=== PATIENT | female | born 1940 | race Caucasian/White ===

== ENCOUNTER → 2017-06-10 | Outpatient (CLI) | payer OTHER ==
--- NOTE | 2017-06-11 17:44 | MRI ---
EXAM DESCRIPTION: Cervical Spine CLINICAL HISTORY: DISC DEGENERATION COMPARISON: 08/03/2011 TECHNIQUE: Multiplanar images of the cervical spine were submitted without the administration of contrast FINDINGS: There is straightening of the normal lordosis. There is mild anterolisthesis of C3 on C4. Mild anterolisthesis of C7 on T1. These changes appear similar to the previous study. Marrow signal is mildly heterogeneous with some reactive endplate changes. No evidence of geographic marrow lesion or marrow edema. No acute fracture. Signal within the cervical cord appears within normal limits. C2-3: Unremarkable. C3-4: Mild disc bulging and facet arthropathy with mild narrowing of the left neural foramen and central canal. C4-5: Generalized and right-sided bulging of the disc with mild flattening of the anterior aspect of the thecal sac and right neural foraminal narrowing. C5-6: Generalized bulging of the disc with moderate narrowing of the central canal and neural foramina. C6-7: Generalized disc bulging with mild central canal stenosis. C7-T1: Mild disc bulging without significant central canal or neural foraminal narrowing. IMPRESSION: Multilevel degenerative change as described above. Changes appear similar to the patient's prior examination Electronically signed by: Kitty Marcelino 06/11/2017 5:42 PM CDT
--- NOTE | 2017-06-11 17:53 | MRI ---
EXAM DESCRIPTION: Brain w/wo Contrast CLINICAL HISTORY: PARESTHESIA OF SKIN COMPARISON: None TECHNIQUE: Multiplanar images of the brain were obtained with and without the administration of intravenous contrast FINDINGS: Ventricles and sulci are mildly prominent consistent with age-appropriate atrophy. No midline shift or mass effect. There is mild periventricular white matter disease and areas of abnormal T2 signal bilaterally, most notable in the subcortical and deep white matter of the left frontal lobe, consistent with microvascular ischemic changes. No evidence of extra-axial fluid collection. Distal carotid arteries have symmetric flow voids. Dominant left vertebral artery. No evidence of abnormal enhancement and no evidence of intraparenchymal mass. The venous sinuses appear to enhance normally. No areas of restricted diffusion to suggest acute infarct. IMPRESSION: No evidence of acute process Age-appropriate atrophy with mild periventricular white matter disease and microvascular ischemic changes Electronically signed by: Kitty Marcelino 06/11/2017 5:52 PM CDT
== END | disposition home or self-care (01) ==
LOC: MRI 12:43
PROVIDERS: ATTEND Family Medicine
DX: R20.2 Paresthesia of skin (principal); M50.30 Other cervical disc degeneration, unspecified cervical region

== ENCOUNTER 2017-07-16 15:56 | Emergency (ER) | payer OTHER ==
[2017-07-16 16:18] VITALS: TEMP 98.2; O2SAT 98
--- NOTE | 2017-07-16 16:25 | ED.PDOC ---
History of Present Illness - General Chief Complaint: Head Injury Stated Complaint: Dizziness, fell in bathtub and hit head Time Seen by Provider: 07/16/17 16:07 Source: patient, RN notes reviewed, Vital Signs reviewed, family - Daughter Exam Limitations: no limitations - History of Present Illness Initial Comments: Patient comes into the ER with c/o head, neck & back pain after falling into the bathtub. She was getting ready to go to the bathroom, leaned over and lost her balance. She fell ending up on her back in the bathtub and striking her head on the tub. No LOC. Denies any other injuries. Occurred: just prior to arrival - ~45 minutes prior to arrival Severity: moderate Head Injury Location: occipital Method of Injury: fell Loss of Consciousness: no loss of consciousness Associated Symptoms: headaches Allergies/Adverse Reactions: Allergies Cephalosporins Allergy (Verified 07/16/17 16:15) Ketorolac Tromethamine [From Toradol] Allergy (Verified 07/16/17 16:15) Metformin Allergy (Verified 07/16/17 16:15) Tramadol [From Ultram] Allergy (Verified 07/16/17 16:15) Home Medications: Ambulatory Orders Aspirin [Baby Aspirin] 81 mg PO QD 04/06/15 Bisoprolol Fumarate 5 mg PO DAILY 04/06/15 Cetirizine HCl [Zyrtec] 10 mg PO DAILY 04/06/15 Clonazepam 0.5 mg PO BEDTIME 04/06/15 Fenofibrate [Tricor] 145 mg PO BEDTIME 04/06/15 Fibercon 2 each PO BID 04/06/15 HYDROcodone 5MG/APAP 325MG [Premont 5/325] 1 tab PO PRN PRN 04/06/15 Insulin Glargine 100U/ml [Lantus] 44 unit SUBCU BEDTIME 04/06/15 Lisinopril 2.5 mg PO DAILY 04/06/15 Multiple Vitamins W/ Minerals [Centrum Silver] 1 tab PO DAILY 04/06/15 Pantoprazole Tablet [Protonix] 40 mg PO DAILY 04/06/15 Venlafaxine Xr [Effexor Xr] 150 mg PO DAILY 04/06/15 Review of Systems - Review of Systems Constitutional: States: no symptoms reported EENTM: States: no symptoms reported. Denies: blurred vision, double vision Respiratory: States: no symptoms reported Cardiology: States: no symptoms reported Gastrointestinal/Abdominal: States: no symptoms reported. Denies: nausea, vomiting Musculoskeletal: States: see HPI, back pain Skin: States: lumps - back of head Neurological: States: headache, numbness - bilateral legs, paresthesia - facial - chronic All other Systems: No Change from Baseline Past Medical History (General) - Patient Medical History Hx Stroke: No Hx Cardiac Disorders: Yes - arrhythmia Hx Hypertension: Yes Hx Diabetes: Yes Hx Gastroesophageal Reflux: Yes Hx Cancer: Yes - skin Hx Hepatitis C: No Hx MRSA: Yes - Stool 2009 MRSA Source:: Wound Surgical History: appendectomy, cholecystectomy, tonsillectomy, Hysterectomy, other - Vaccination History Hx Influenza Vaccination: No Hx Pneumococcal Vaccination: No - Social History Hx Tobacco Use: No Hx Alcohol Use: Yes - Female History Patient is a Female of Child Bearing Age (10 -59 yrs old): No Patient : No Family Medical History - Family History Mother Family History: Unknown Living Status: Cause of : lung CA Physical Exam - Physical Exam General Appearance: Alert, No apparent distress, Well Developed, Well Groomed, Well Hydrated, Well Nourished Head Injury: contusions - back of head, swelling, tenderness Eye Exam: bilateral normal ENT Exam: hearing grossly normal, no evidence of ENT injury, no dental injury Neck Exam: normal alignment, tenderness, tender lateral, tender midline Cardiovascular/Respiratory: regular rate, rhythm, normal breath sounds, no respiratory distress, murmur - systolic Back Exam: vertebral tenderness - upper thoracic and lumbar, Tender paraspinous muscles thoracic and lumbar Extremity: normal range of motion, non-tender, normal inspection Mental Status: alert, oriented x 3 assistant chief engineer Exam: normal hearing, normal speech, PERRL Coordination/Gait: normal gait Motor/Sensory: no motor deficit, no sensory deficit Skin Exam: normal color, warm/dry Comments: Vital Signs 07/16/17 16:09 Temperature 98.2 F Pulse Rate [ 74 Left Radial] Respiratory 20 Rate Blood Pressure 151/49 [Left Arm] O2 Sat by Pulse 98 Oximetry - [place] Coma Score Best Eye Response (Pb): (4) open spontaneously Best Verbal Response ([place]): (5) oriented Best Motor Response ([place]): (6) obeys commands Pb Total: 15 Progress - Progress Progress: 07/16/17 17:23 Discussed normal imaging results with patient and daughter. - EKG/XRAY/CT Xray Comments: T & L-Spine: no acute fx/injury per Radiologist CT: C-spine: no fracture or acute changes per Radiologist CT Ordered: Yes - Head: no acute intracranial abnormality per Rad. Departure - Departure Clinical Impression: Contusion of other part of head, initial encounter, Strain of muscle and tendon of back wall of thorax, initial encounter Cervical strain, acute Qualifiers: Encounter type: initial encounter Qualified Code(s): S16.1XXA - Strain of muscle, fascia and tendon at neck level, initial encounter Time of Disposition: 17:25 Disposition: Discharge to Home or Self Care Condition: Good Departure Forms: ED Discharge - Pt. Copy, Patient Portal Self Enrollment Instructions: DI for Closed Head Injury, DI for Back Strain or Sprain, DI for Whiplash Diet: resume usual diet Activity: increase activity as tolerated Referrals: Mukul Farr MD [Primary Care Provider] - 1-2 Weeks Home Medications: Ambulatory Orders Aspirin [Baby Aspirin] 81 mg PO QD 04/06/15 Bisoprolol Fumarate 5 mg PO DAILY 04/06/15 Cetirizine HCl [Zyrtec] 10 mg PO DAILY 04/06/15 Clonazepam 0.5 mg PO BEDTIME 04/06/15 Fenofibrate [Tricor] 145 mg PO BEDTIME 04/06/15 Fibercon 2 each PO BID 04/06/15 HYDROcodone 5MG/APAP 325MG [Premont 5/325] 1 tab PO PRN PRN 04/06/15 Insulin Glargine 100U/ml [Lantus] 44 unit SUBCU BEDTIME 04/06/15 Lisinopril 2.5 mg PO DAILY 04/06/15 Multiple Vitamins W/ Minerals [Centrum Silver] 1 tab PO DAILY 04/06/15 Pantoprazole Tablet [Protonix] 40 mg PO DAILY 04/06/15 Venlafaxine Xr [Effexor Xr] 150 mg PO DAILY 04/06/15
--- NOTE | 2017-07-16 17:08 | RAD ---
EXAM: Lumbar Spine 3 Views (accession [id number]), Thoracic Spine,AP Lateral (accession [id number]) CLINICAL INDICATION: 76-year-old female with pain status post falling into bathtub. TECHNIQUE: Two views of the thoracic spine were obtained in AP, and lateral projection. Three views of the lumbar spine were obtained in AP, lateral and spot projections. COMPARISON: None. FINDINGS: Thoracic spine: Alignment of the thoracic spine is within normal limits. There is no subluxation or fracture deformity. Morphology of the vertebral bodies and intervertebral disc spaces is compatible with mild degenerative change. Lumbar spine: Alignment of the lumbar spine is within normal limits. There is no subluxation or fracture deformity. Morphology of the vertebral bodies and intervertebral disc spaces is compatible with mild degenerative change. Orthopedic screws traverse the L4 and L5 levels with posterior laminectomy. The remainder of the visualized bones are within normal limits. IMPRESSION: No acute radiographic abnormality. Electronically signed by: Linnea Palomo MD 07/16/2017 5:06 PM CDT Workstation: [id number]
--- NOTE | 2017-07-16 17:08 | RAD ---
EXAM: Lumbar Spine 3 Views (accession [id number]), Thoracic Spine,AP Lateral (accession [id number]) CLINICAL INDICATION: 76-year-old female with pain status post falling into bathtub. TECHNIQUE: Two views of the thoracic spine were obtained in AP, and lateral projection. Three views of the lumbar spine were obtained in AP, lateral and spot projections. COMPARISON: None. FINDINGS: Thoracic spine: Alignment of the thoracic spine is within normal limits. There is no subluxation or fracture deformity. Morphology of the vertebral bodies and intervertebral disc spaces is compatible with mild degenerative change. Lumbar spine: Alignment of the lumbar spine is within normal limits. There is no subluxation or fracture deformity. Morphology of the vertebral bodies and intervertebral disc spaces is compatible with mild degenerative change. Orthopedic screws traverse the L4 and L5 levels with posterior laminectomy. The remainder of the visualized bones are within normal limits. IMPRESSION: No acute radiographic abnormality. Electronically signed by: Linnea Palomo MD 07/16/2017 5:06 PM CDT Workstation: [id number]
--- NOTE | 2017-07-16 17:12 | CT ---
EXAM: Head CLINICAL INDICATION: 76-year-old female status post fall backwards into bathtub, hitting head. COMPARISON: None. TECHNIQUE: CT brain without contrast. This exam was performed according to our departmental dose optimization program which includes use of automated exposure control, adjustment of the mA and/or kV according to patient size and/or use of iterative reconstruction technique. FINDINGS: Minimal foci of patchy hypoattenuation are present in a subcortical and periventricular deep white matter distribution, nonspecific; however, most likely represent small vessel ischemic disease, age indeterminate. The ventricles, sulci, and cisterns are symmetric and unremarkable. The west-white matter differentiation is preserved. There is no mass effect, midline shift, intra- or extra-axial fluid collection/acute hemorrhage. The osseous structures are unremarkable. The paranasal sinuses and mastoid air cells are clear. IMPRESSION: 1. No acute intracranial abnormalities. Nonspecific, minimal white matter change most likely small vessel ischemic disease, age indeterminate. 2. CT is insensitive for early evaluation of acute stroke. If there is clinical concern for acute ischemia, an MRI may be considered. Electronically signed by: Linnea Palomo MD 07/16/2017 5:10 PM CDT Workstation: [id number]
--- NOTE | 2017-07-16 17:17 | CT ---
EXAM: Cervical Spine CLINICAL INDICATION: 36-year-old female status post fall backwards onto bathtub hitting head. TECHNIQUE: Cervical spine CT was performed without contrast. Multiplanar reformatted images were provided. This exam was performed according to our departmental dose optimization program which includes use of automated exposure control, adjustment of the mA and/or kV according to patient size and/or use of iterative reconstruction technique. COMPARISON: None. FINDINGS: Trace anterolisthesis present of C3 relative to C4 suspected secondary to severe facet degenerative change at that level. There is otherwise normal alignment of the cervical spine without fracture or subluxation. The facets are normal in alignment bilaterally. The posterior elements including the spinous processes are intact. Straightening of the cervical spine which may be secondary to positioning for the examination. Morphology and attenuation of the vertebral bodies and intervertebral disc spaces is compatible with moderate multilevel degenerative change with moderate to severe RIGHT facet hypertrophy and mild LEFT facet hypertrophy. Loss of disk height present throughout the visualized cervical spine. Posterior osseous spurring results in central spinal canal and neural foraminal narrowing at the C4-5, C5-6 and C6-7 vertebral level. The pre-and paravertebral soft tissues are within normal limits. The airway is patent. Extraspinal imaging is within normal limits. IMPRESSION: 1. Straightening of the cervical spine which may be secondary to positioning for the examination versus spasm. 2. No fracture or acute subluxation. 3. Multilevel degenerative changes as detailed above. If the patient's symptoms persist, follow-up imaging may be considered with MRI. Electronically signed by: Linnea Palomo MD 07/16/2017 5:15 PM CDT Workstation: [id number]
[2017-07-16 17:56] VITALS: BP 112/59
== END 2017-07-16 18:00 | disposition home or self-care (01) ==
LOC: ER 15:56
DX: S16.1XXA Strain of muscle, fascia and tendon at neck level, initial encounter (principal); S00.93XA Contusion of unspecified part of head, initial encounter; S29.012A Strain of muscle and tendon of back wall of thorax, initial encounter; E11.9 Type 2 diabetes mellitus without complications; I10 Essential (primary) hypertension; K21.9 Gastro-esophageal reflux disease without esophagitis; Z85.828 Personal history of other malignant neoplasm of skin; Z88.8 Allergy status to other drugs, medicaments and biological substances; Z79.4 Long term (current) use of insulin; Z79.82 Long term (current) use of aspirin; W18.2XXA Fall in (into) shower or empty bathtub, initial encounter; Y92.002 Bathroom of unspecified non-institutional (private) residence as the place of occurrence of the external cause

== ENCOUNTER → 2017-09-14 | Outpatient (CLI) | payer OTHER | END | disposition home or self-care (01) | LOC: GMAM 16:56 | PROVIDERS: ATTEND Family Medicine | DX: E83.52 Hypercalcemia (principal); L65.8 Other specified nonscarring hair loss ==

== ENCOUNTER → 2018-03-07 | Outpatient (CLI) | payer OTHER | LOC: GMAM 12:23 | PROVIDERS: ATTEND Family Medicine | DX: L02.212 Cutaneous abscess of back [any part, except buttock and flank] (principal) ==

== ENCOUNTER → 2018-05-17 | Outpatient (CLI) | payer OTHER ==
--- NOTE | 2018-05-17 17:12 | RAD ---
EXAM DESCRIPTION: Knee,Left Complete CLINICAL HISTORY: 77 years, Female, PAIN IN LEFT KNEE COMPARISON: None TECHNIQUE: Four views of the left knee including standing views FINDINGS: No fracture or dislocation. Bones appear mildly osteopenic. Narrowed appearance of lateral compartment on frontal view with prominent lateral joint line spurring and tibial spine spurring. Lateral view shows normal position of the patella. Marked posterior patellar spurring is seen with severe narrowing of the patellofemoral joint. Suprapatellar joint effusion is present. Normal contour of quadriceps tendon but patellar tendon is obscured by edema superficial and deep. No abnormal patellar tilt or subluxation on patellar sunrise view. Prominent spurring laterally. IMPRESSION: Degenerative changes as described. Electronically signed by: Bertin Christensen MD 05/17/2018 5:11 PM CDT
--- NOTE | 2018-05-17 17:14 | RAD ---
EXAM DESCRIPTION: Knee,Right Complete CLINICAL HISTORY: 77 years, Female, PAIN IN RIGHT KNEE COMPARISON: None TECHNIQUE: Four views of the right knee including standing views FINDINGS: No fracture or dislocation. Bones appear mildly osteopenic. Narrowed appearance of lateral compartment on frontal view with prominent lateral joint line spurring and spurring of the tibial spines. Calcific density near the medial femoral condyle could be old injury or dystrophic calcification (hydroxyapatite crystal deposition). Lateral view shows normal position of the patella. Small posterior patellar spurs are present. Small suprapatellar knee joint effusion is suspected. Normal contour of quadriceps and patellar tendons. Prominent spurring of the posterior tibial surface. No abnormal patellar tilt or subluxation on patellar sunrise view. Prominent medial and lateral patellofemoral spurring. IMPRESSION: Degenerative changes as described. Electronically signed by: Bertin Christensen MD 05/17/2018 5:13 PM CDT
--- NOTE | 2018-05-17 17:15 | RAD ---
EXAM DESCRIPTION: Pelvis CLINICAL HISTORY: 77 years Female, PAIN IN LEFT HIP COMPARISON: None. FINDINGS: Frontal view of the pelvis shows no evidence of hip dislocation or femoral fracture. The bones of the pelvic ring appear intact. Myositis ossificans is seen in the soft tissues lateral to the iliac wings. Degenerative narrowing of the left SI joint with sclerosis. Orthopedic hardware is seen in the lower L-spine. Punctate densities in the right pelvis are present which may be calcifications or small metallic foreign bodies within bowel loops. IMPRESSION: Negative for fracture or dislocation. Electronically signed by: Bertin Christensen MD 05/17/2018 5:14 PM CDT
== END ==
LOC: RAD 08:13
PROVIDERS: ATTEND Orthopaedic Surgery
DX: M25.561 Pain in right knee (principal); M25.562 Pain in left knee; M25.551 Pain in right hip; M25.552 Pain in left hip

== ENCOUNTER → 2018-06-05 | Outpatient (CLI) | payer OTHER | LOC: RESP 10:45 | PROVIDERS: ATTEND Orthopaedic Surgery | DX: Z01.818 Encounter for other preprocedural examination (principal) ==

== ENCOUNTER 2018-06-30 05:29 | Inpatient (IN) | payer OTHER ==
[2018-06-30] MEDS ORDERED: GENTAMICIN SULFATE INJ 80 MG/2 ML VIAL ONE ×3 (06:24→19:44)
[2018-06-30] MEDS ORDERED: TRANEXAMIC ACID 1,000 MG/10 ML VIAL ONE ×2 (06:24→06:26)
[2018-06-30] MEDS ORDERED: LACTATED RINGERS 1,000 ML ONE (06:24)
[2018-06-30] MEDS ORDERED: VANCOMYCIN HCL INJ 1,000 MG VIAL IVPB ONE ×4 (06:25→19:41)
[2018-06-30] MEDS ORDERED: SODIUM CHLORIDE 0.9% 250ML 250 ML ONE ×3 (06:25→19:40)
[2018-06-30] MEDS ORDERED: SODIUM CHLORIDE 0.9% 100ML 200 ML IVPB ONE (06:25)
[2018-06-30] MEDS ORDERED: MIDAZOLAM INJ 2 MG/2 ML VIAL ONE (06:37)
[2018-06-30] MEDS ORDERED: fentaNYL CITRATE INJ 50 MCG/ML AMP ONE (06:37)
[2018-06-30] MEDS ORDERED: MORPHINE SULF *EPIDURAL* 1 MG/ML VIAL ONE (06:37)
[2018-06-30] MEDS ORDERED: BUPIVACAINE 0.25% W/EPI 50 ML VIAL INJ ONE (06:52)
[2018-06-30] MEDS ORDERED: ceFAZolin SODIUM 1 GM VIAL ONE ×2 (06:52→07:55)
[2018-06-30] MEDS ORDERED: METOCLOPRAMIDE HCL INJ 10 MG/2 ML VIAL ONE (07:00)
[2018-06-30] MEDS ORDERED: BUPIVACAINE LIPOSOME 13.3 MG/ML VIAL INJ ONE (07:00)
[2018-06-30] MEDS ORDERED: raNITIdine HCL INJ 25 MG/ML VIAL ONE (07:00)
[2018-06-30] MEDS ORDERED: ePHEDrine SULF 50 MG/ML ONE (07:00)
[2018-06-30] MEDS ORDERED: DEXAMETHASONE INJ 10 MG/ML VIAL ONE (07:00)
[2018-06-30] MEDS ORDERED: PROPOFOL 200 MG/20 ML VIAL IV ONE (07:00)
--- NOTE | 2018-06-30 08:05 | HP ---
CHIEF COMPLAINT: Left knee pain. HISTORY OF PRESENT ILLNESS: Ms. Sahu is a 77-year-old female with a history of pain in both knees. She has had pain that has limited her daily activities. Because of the activity limitations and failure of conservative measures, she has requested operative intervention. After discussing the risks, benefits and alternatives to that, the patient has given informed consent. PAST SURGICAL HISTORY: 1. Laminectomy. 2. Appendectomy. 3. Hysterectomy. MEDICATIONS: 1. Atorvastatin. 2. Bisoprolol. 3. Clonazepam. 4. Dorzolamide. 5. Fenofibrate. 6. Gabapentin. 7. Humalog. 8. Januvia. 9. Lantus. 10. Latanoprost. 11. Lisinopril. 12. Mupirocin. 13. Venlafaxine. 14. Zostavax. 15. Tylenol with codeine. 16. Nortriptyline ALLERGIES: CEPHALOSPORINS, TRAMADOL. CODE STATUS: Full code. IMMUNIZATIONS: Up to date. FAMILY HISTORY: None pertinent to today's complaint. SOCIAL HISTORY: The patient does not smoke or use any illicit drugs. She does drink on occasion. REVIEW OF SYSTEMS: Negative except as indicated in the History of Present Illness. PHYSICAL EXAMINATION: VITAL SIGNS: Blood pressure 96/54. Pulse 82. Height 5'1". Weight 153 pounds. MENTAL STATUS: The patient is awake, alert, and is able to give a good history and participate in the physical. The patient is oriented to person, place and time. SKIN: Normal tone and turgor. HEENT: Normocephalic, atraumatic. Pupils equal, round and reactive. Mucosal membranes are moist. NECK: Normal range of motion. No thyromegaly, no lymphadenopathy. CHEST: Normal respiratory excursion. CARDIAC: Regular rate and rhythm. No murmurs, rubs or gallops. MUSCULOSKELETAL: The bilateral upper extremities have full range of motion without pain. She has intact sensation in the extremities and they are warm and well perfused. The right lower extremity shows full range of motion of the hip. She has pain with range of motion of the knee and crepitus with range of motion. Sensation is intact. It is warm and well perfused. There is a valgus deformity. Strength is 5/5. The left lower extremity shows pain with range of motion of the knee, but essentially painless range of motion of the hip. She has crepitus with range of motion of the knee. She has valgus deformity. Sensation is intact. It is warm and well perfused. Strength seems to be 5/5. Range of motion is from approximately 5 to approximately 105 degrees. IMAGING: X-rays show advanced arthritis with valgus deformities. ASSESSMENT: 1. Bilateral knee arthritis. PLAN: Because the left side is worse, she would like to proceed with total knee arthroplasty. We have discussed the risks, benefits, and alternatives to that and the patient has given informed consent. #[id number] [facility]
[2018-06-30] MEDS: VANCOMYCIN HCL INJ 1,000 MG VIAL IVPB ONE ×2 (09:19→10:20)
[2018-06-30] MEDS ORDERED: ACETAMINOPHEN IV 1000MG 100 ML ONE (09:19)
[2018-06-30] MEDS ORDERED: BUPIVACAINE 0.5% 30 ML VIAL INJ ONE (10:03)
[2018-06-30] MEDS ORDERED: NALOXONE HCL INJ 0.4 MG/ML VIAL IV PRN (10:26)
[2018-06-30] MEDS ORDERED: MAGNESIUM HYDROXIDE 30 ML UD PO PRN (10:26)
[2018-06-30] MEDS ORDERED: PROMETHAZINE HCL INJ 12.5 MG in SODIUM CHLORIDE 0.9% 50ML 50 ML IVPB PRN (10:26)
[2018-06-30] MEDS ORDERED: MORPHINE SULFATE INJ 10 MG/ML VIAL IV PRN (10:26)
[2018-06-30] MEDS ORDERED: PROMETHAZINE HCL INJ 25 MG in SODIUM CHLORIDE 0.9% 50ML 50 ML IVPB PRN (10:26)
[2018-06-30] MEDS ORDERED: SODIUM CHLORIDE 0.9% (FLUSH) 10 ML SYG IV PRN (10:26)
[2018-06-30] MEDS ORDERED: BENZOCAINE-MENTH LOZ (CEPACOL) 1 EA LOZ MT PRN (10:26)
[2018-06-30] MEDS ORDERED: ACETAMINOPHEN 325 MG TAB PO PRN (10:26)
[2018-06-30] MEDS ORDERED: HYDROcodone 5MG/APAP 325MG 1 EA TAB PO PRN (10:26)
[2018-06-30] MEDS ORDERED: ZOLPIDEM TARTRATE 5 MG TAB PO PRN (10:26)
[2018-06-30] MEDS ORDERED: BISACODYL SUPPOSITORY 10 MG PR PRN (10:26)
[2018-06-30] MEDS ORDERED: TRANEXAMIC ACID INJ 1,000 MG in SODIUM CHLORIDE 0.9% 100ML 100 ML IVPB ONE (10:26)
[2018-06-30] MEDS ORDERED: ONDANSETRON INJ 4 MG/2 ML VIAL IV PRN (10:26)
[2018-06-30] MEDS ORDERED: MORPHINE SULFATE INJ 10 MG/ML VIAL IM PRN (10:26)
[2018-06-30] MEDS ORDERED: DEX 5% W/NACL 0.45% 1000ML 1,000 ML IVS PRN (10:26)
[2018-06-30] MEDS ORDERED: ACETAMINOPHEN 500 MG TAB PO PRN (10:26)
[2018-06-30] MEDS ORDERED: MORPHINE PCA 1 MG/ML 100 ML BAG IVPB SCH (10:30)
[2018-06-30] MEDS ORDERED: ELECTROLYTE-A 1,000 ML IVS ONE (10:37)
[2018-06-30] MEDS ORDERED: SUGAMMADEX SODIUM 200 MG/2 ML VIAL IV ONE (10:38)
[2018-06-30] MEDS ORDERED: ROCURONIUM BROMIDE 10 MG/ML VIAL ONE (11:53)
--- NOTE | 2018-06-30 13:23 | OP ---
DATE OF PROCEDURE: 06/30/18 PREOPERATIVE DIAGNOSIS: 1. Arthritis of the knee. POSTOPERATIVE DIAGNOSIS: 1. Arthritis of the knee. PROCEDURE: 1. Total knee arthroplasty. SURGEON: Carlos Sexton MD. [place]: Fernando Saldana CST, SA-C. ANESTHESIA: General anesthesia. COMPLICATIONS: None. FINDINGS: Severe arthritis with valgus deformity. INDICATION: Ms. Sahu has a history of severe knee pain that has been secondary to arthritis. She has an associated valgus deformity as well. She has failed conservative measures and because of her ongoing pain and failure of conservative measures, she has requested operative intervention. After discussing the risks, benefits and alternatives to that, the patient has given informed consent for total knee arthroplasty. PROCEDURE: The patient was brought to the Operating Room and placed in supine position. General anesthesia was induced and the patient's leg was sterilely prepped and draped. Following prepping and draping, the distal femur was exposed and using an intramedullary guide, the distal femoral cut was made. The appropriate sized cutting block was measured, pinned into place, and the anterior, posterior, and chamfer cuts were made. The ACL was transected and the tibia was subluxed. Both the medial and lateral menisci were removed. An intramedullary guide was used to make the proximal tibial cut. The appropriate sized base plate was placed and a trial polyethylene was placed. The trial femur was placed, the knee was reduced, and the knee was taken through a range of motion. The knee was stable in anterior, posterior, varus and valgus stress. The patella tracked anatomically without evidence of subluxation or dislocation. After trialing, the trial components were removed and the bony surfaces were thoroughly irrigated with saline. Following irrigation, the surfaces were dried and the final components were cemented into place. The excess cement was removed and the remaining cement was allowed to cure. The knee was again taken through a range of motion to confirm stability. The wound was then irrigated with saline and closure was performed using PDS to approximate the arthrotomy followed by closure of the subcutaneous tissues with a combination of running and interrupted Monocryl sutures. Sterile dressing was placed. The patient was awoken from anesthesia and taken to Recovery. POSTOPERATIVE INSTRUCTIONS: The patient will be weight-bearing as tolerated on postoperative day 1. COMPONENTS: [place] [employer] knee, size 2 femur, size 2 tibia, 9 mm insert. #[id number] [facility]
[2018-06-30] MEDS: GENTAMICIN SULFATE IVPB SCH ×2 (13:24→19:59)
[2018-06-30] MEDS: GENTAMICIN IVPB SCH ×2 (13:24→19:59)
[2018-06-30] MEDS: IV SET AND CAP CHANGE INJ INJ SCH (13:24)
--- NOTE | 2018-06-30 15:29 | RAD ---
EXAM DESCRIPTION: Knee,Left 2 or More Views CLINICAL HISTORY: 77 years Female, TKA TECHNIQUE: 2 views of the left knee were performed. COMPARISON: Radiographs of the left knee dated 05/17/2018. FINDINGS: The visualized bones appear well mineralized. No acute fracture or dislocation. No evidence of suprapatellar joint effusion. The soft tissues appear grossly unremarkable. Intact left total knee arthroplasty. IMPRESSION: Intact left total knee arthroplasty. Electronically signed by: Makeda Moreno MD 06/30/2018 3:28 PM CDT
[2018-06-30] MEDS ORDERED: DEXTROSE 50% 25 GM/50 ML SYG IV PRN (15:42)
[2018-06-30] MEDS ORDERED: GLUCAGON INJ 1 MG VIAL SUBCU PRN (15:42)
[2018-06-30] MEDS ORDERED: diphenhydrAMINE HCL 50 MG/ML VIAL IV PRN (15:44)
[2018-06-30] MEDS: INSULIN LISPRO 100 UNITS/ML PEN SUBCU SCH ×2 (16:24→20:57)
[2018-06-30] MEDS: CELECOXIB 100 MG CAP PO SCH (16:25)
[2018-06-30] MEDS: ASPIRIN (CHEWABLE) 81 MG TAB PO SCH (16:25)
[2018-06-30] MEDS: CETIRIZINE HCL 10 MG TAB PO SCH (16:26)
[2018-06-30] MEDS: VANCOMYCIN HCL INJ 1,000 MG in SODIUM CHLORIDE 0.9% 250ML 250 ML IVPB SCH (17:33)
[2018-06-30] MEDS ORDERED: GENTAMICIN PREMIX 80MG/100ML 100 ML IVPB ONE ×2 (19:39→19:44)
[2018-06-30] MEDS ORDERED: CALCIUM POLYCARBOPHIL 625 MG TAB ONE (19:40)
[2018-06-30] MEDS ORDERED: PANTOPRAZOLE SODIUM TAB 40 MG PO ONE (19:40)
[2018-06-30] MEDS ORDERED: ENOXAPARIN SODIUM 30 MG/0.3 ML SYG SUBCU ONE (19:41)
[2018-06-30] MEDS ORDERED: SODIUM CHLORIDE 0.45% 1000ML 1,000 ML IVS ONE (19:44)
[2018-06-30] MEDS: SODIUM CHLORIDE 0.45% 1000ML 1,000 ML IVS PRN (20:00)
[2018-06-30] MEDS: GABAPENTIN 100 MG CAP PO SCH (20:56)
[2018-06-30] MEDS: NORTRIPTYLINE HCL 25 MG CAP PO SCH (20:57)
[2018-06-30] MEDS: DOCUSATE CALCIUM 240 MG CAP PO SCH (20:57)
[2018-06-30] MEDS ORDERED: FIBERCON PO SCH (21:00)
[2018-06-30] MEDS ORDERED: OMEGA ACID ETHYL ESTERS PO SCH (21:00)
[2018-06-30] MEDS ORDERED: DORZOLAMIDE 2% OPHTH SCH (21:00)
[2018-06-30] MEDS ORDERED: NON-FORMULARY MEDICATION 1 EA MIS (Latanoprost 0.005% Ophth [Xalatan 0.005% Ophthalmic Dro BOTH_EYES SCH (21:00)
[2018-06-30] MEDS: ENOXAPARIN SODIUM 30 MG/0.3 ML SYG SUBCU SCH (23:05)
--- NOTE | 2018-07-01 00:23 | CONS ---
DATE OF CONSULTATION: 06/30/18 SUPERVISING PHYSICIAN: Humberto See M.D. REASON FOR CONSULTATION: Total left knee arthroplasty. HISTORY OF PRESENT ILLNESS: Ms. Sahu is a 77 year-old female patient that was admitted today for elective total left knee arthroplasty. She has a longstanding history of arthritis and pain in both knees. She has tried multiple attempts at conservative measures for relief of her pain, however has failed to receive any significant improvement. The pain has increased enough that it has limited her activities of daily living, therefore she requested operative intervention for a total left knee arthroplasty to be performed by Dr. Carlos Sexton. The patient was admitted for elective total knee arthroplasty today. She had no intraoperative complications and was seen in the immediate postoperative state in stable condition. PAST MEDICAL HISTORY: 1. Coronary artery disease. 2. Hypertension. 3. Peripheral vascular disease. 4. Gastroesophageal reflux disease. 5. History of Clostridium Difficile colitis in 2005. 6. Type 2 diabetes mellitus. 7. History of GI bleed after NSAIDs and steroids. PAST SURGICAL HISTORY: 1. Laminectomy. 2. Appendectomy. 3. Hysterectomy. 4. Bilateral cataract removal. 5. Tonsillectomy. HOME MEDICATIONS: 1. Glucosamine chondroitin 1 tablet daily. 2. Tylenol #3 one every 6 hours as needed for pain. 3. Januvia 100 mg daily. 4. Lovaza 2 capsules b.i.d. 5. Nortriptyline 50 mg at bedtime. 6. Mobic 7.5 mg daily. 7. Slow-Mag 128 mg daily. 8. Xalatan 1 drop both eyes at bedtime. 9. Humalog 100 units subcue as needed. 10. Neurontin 200 mg t.i.d. 11. Estrace 1 mg daily. 12. Trusopt 1 mL both eyes at bedtime. 13. Co Enzyme Q10 50 mg daily. 14. Cinnamon 1,000 mg daily. 15. Bisacodyl laxative 10 mg daily. 16. Clonazepam 0.5 mg at bedtime. 17. Bisoprolol Fumarate 5 mg daily. 18. Aspirin 81 mg daily. 19. TriCor 145 mg p.o. at bedtime. 20. FiberCon 2 tablets daily. 21. Lantus 46 units at bedtime. 22. Lisinopril 2.5 mg daily. 23. Multivitamin Centrum 1 tablet daily. 24. Effexor XR 150 mg daily. 25. Protonix 40 mg daily. ALLERGIES: CEPHALOSPORINS, KETOROLAC, METFORMIN AND TRAMADOL. FAMILY HISTORY: Significant for myocardial infarction. Father at age 84. Mother secondary to lung cancer. SOCIAL HISTORY: Ms. Sahu lives in [place]. She is and retired. She has never smoked. She does not drink alcohol. She does not use illicit drugs. REVIEW OF SYSTEMS: CONSTITUTIONAL: Denies any fevers, chills, body aches or unintentional weight loss. HEENT: No nasal congestion, headaches, sore throats, ear aches. RESPIRATORY: Denies any shortness of breath, cough, wheezing. CARDIOVASCULAR: Denies any chest pains, palpitations, syncopal episodes. GASTROINTESTINAL: Denies any nausea, vomiting, diarrhea or constipation or abdominal pains. GENITOURINARY: Denies any dysuria, hematuria, polyuria or other urinary symptoms. MUSCULOSKELETAL: As noted in history of present illness. NEUROLOGIC: Denies any syncopal episodes, ataxia, seizures or other neurological deficits. PHYSICAL EXAMINATION: VITAL SIGNS: Temperature 99.6, pulse 105, blood pressure 127/80, respirations 10 to 12, satting 99% on nasal cannula at 2 liters at rest. Admission weight 73.9 kg. GENERAL: The patient is seen in the immediate postoperative state. She is in no acute distress, resting comfortably with good pain control. Alert. HEENT: Tympanic membranes are clear bilaterally. Oropharynx is pink and moist without any lesions. NECK: Supple, non-tender with full range of motion. No jugular venous distention. CHEST: Lungs are clear to auscultation bilaterally without any rhonchi, wheezing or rales. HEART: Regular rate and rhythm without appreciable murmurs, gallops, or rubs. ABDOMEN: Soft, non-tender. Positive bowel sounds. EXTREMITIES: Left knee has a bulky surgical dressing in place with Iceman in place. Distally pulses are strong. Capillary refill is brisk. NEUROLOGIC: She was alert and oriented times three. LABORATORY: Postoperative H&H is pending. ASSESSMENT: 1. Immediate postoperative day zero for elective total left knee arthroplasty performed by Dr. Carlos Sexton. 2. Chronic knee pain failing to respond to conservative outpatient treatment measures requiring surgical intervention for symptom control. 3. Diabetes mellitus type 2, insulin dependent. 4. Hypertension. 5. History of gastroesophageal reflux disease. PLAN: The patient is admitted postoperative after elective total knee arthroplasty. Will follow as she progresses through her physical therapy and rehabilitation efforts with Physical Therapy under the direction of Dr. Carlos Sexton, orthopedic surgeon. Will resume her home medications as appropriate once updated and verified. She will be on DVT prophylaxis as per protocol with anticipation of Xarelto at discharge for a total of 12 days anticoagulation. She will be on insulin sliding scale per protocol. Tentative discharge planning includes arrangements [facility] [place]. Again, will defer further orthopedic management to Dr. Sexton and Physical Therapy. Until clinically stable enough to be discharged and met physical therapy goals, will continue to monitor and treat appropriately as needed. [facility][id number] [facility]
[2018-07-01] MEDS: GENTAMICIN IVPB SCH (03:50)
[2018-07-01] MEDS: GENTAMICIN SULFATE IVPB SCH (03:50)
[2018-07-01] MEDS: VANCOMYCIN HCL INJ 1,000 MG in SODIUM CHLORIDE 0.9% 250ML 250 ML IVPB SCH (06:21)
[2018-07-01] MEDS: PANTOPRAZOLE SODIUM TAB 40 MG PO SCH (06:21)
[2018-07-01] MEDS ORDERED: SITagliptin 50 MG TAB PO ONE (07:30)
[2018-07-01] MEDS ORDERED: CALCIUM POLYCARBOPHIL 625 MG TAB ONE (07:32)
[2018-07-01] MEDS: ACETAMINOPHEN W/COD #3 TAB 1 EA TAB PO PRN ×3 (07:51→17:23)
[2018-07-01] MEDS: CELECOXIB 100 MG CAP PO SCH ×3 (07:54→16:19)
[2018-07-01] MEDS: INSULIN LISPRO 100 UNITS/ML PEN SUBCU SCH ×4 (08:43→20:52)
[2018-07-01] MEDS ORDERED: NON-FORMULARY MEDICATION 1 EA MIS (Sitagliptin Phosphate [Januvia] 100 MG) PO SCH (09:00)
[2018-07-01] MEDS: VENLAFAXINE XR 75 MG CAP PO SCH (09:20)
[2018-07-01] MEDS: FISH OIL 1,200 MG CAP PO SCH ×2 (09:20→20:52)
[2018-07-01] MEDS: SITagliptin 50 MG TAB PO SCH (09:20)
[2018-07-01] MEDS: MAGNESIUM CHLORIDE 64 MG TAB PO SCH (09:20)
[2018-07-01] MEDS: FENOFIBRIC ACID 135 MG CAP PO SCH (09:21)
[2018-07-01] MEDS: CALCIUM POLYCARBOPHIL 625 MG TAB PO SCH ×2 (09:21→20:52)
[2018-07-01] MEDS: ESTRADIOL TAB 1 MG PO SCH (09:21)
[2018-07-01] MEDS: ASPIRIN (CHEWABLE) 81 MG TAB PO SCH (09:21)
[2018-07-01] MEDS: CETIRIZINE HCL 10 MG TAB PO SCH (09:21)
[2018-07-01] MEDS: GABAPENTIN 100 MG CAP PO SCH ×3 (09:21→20:52)
[2018-07-01] MEDS: LISINOPRIL 5 MG TAB PO SCH (09:22)
[2018-07-01] MEDS: BISACODYL TAB 5 MG TAB PO SCH (09:29)
[2018-07-01] MEDS: MAGNESIUM OXIDE 400 MG TAB PO SCH (09:29)
[2018-07-01] MEDS: ENOXAPARIN SODIUM 30 MG/0.3 ML SYG SUBCU SCH ×2 (11:32→22:39)
[2018-07-01] MEDS: BISOPROLOL 5 MG PO SCH (11:33)
--- NOTE | 2018-07-01 15:09 | PN ---
DATE: 07/01/18 SUBJECTIVE: The patient today is doing well. She is apprehensive about her left knee and starting her therapy, but she is ready to start with her physical therapist today. She did have reported drop in her oxygen level overnight but is now feeling comfortable on her 2 liters via nasal cannula. Her pain is much better overnight with the addition of Tylenol #3 to her regimen of morphine. She denies any fever, chills, chest pain or further dyspnea today. OBJECTIVE: VITAL SIGNS: Temperature 98.5 degrees Fahrenheit, heart rate 72 [id number], blood pressure 127/77, respiratory rate 20 per minute, oxygen saturation 93% on room air as of 0600 this morning. GENERAL: No acute distress. Alert and oriented times three. HEENT: Normocephalic and atraumatic. Pupils are equal and reactive to light. Extraocular muscles are intact. CARDIOVASCULAR: Normal heart rate. Dorsalis pedis pulses intact. RESPIRATORY: No distress. No conversational dyspnea. Comfortable on 2 liters via nasal cannula and weaning down currently. MUSCULOSKELETAL: Moves all extremities well except left lower extremity which is immobilized. Dressing to the left knee is clean, dry and intact. Aircast is in place. Bilateral ICDs are present. Lower extremities are neurovascularly intact. LABORATORY: Hemoglobin 9.9. Blood sugar checks 148 at 11:30 yesterday, 168 at 1600 yesterday, 241 at 2100 yesterday and 106 at 0700 this morning. RADIOLOGY: X-ray of the left knee on shows intact left total knee replacement. ASSESSMENT: 1. Postoperative day #1 status post left total knee arthroplasty with Dr. Sexton. 2. Diabetes mellitus type 2 with good glycemic control. 3. Hypertension with good blood pressure control. 4. Gastroesophageal reflux disease. 5. History of major depressive disorder. PLAN: We will continue with physical therapy for the left knee with a plan to discharge to the [facility] for outpatient physical therapy when all of her inpatient goals are met. Continue pain control per Dr. Sexton. Continue DVT prophylaxis as well as full anticoagulation per total joint replacement protocol. Continue home Januvia and sliding scale insulin. We are currently holding her home Lantus but blood sugar control has been quite good. We will continue home Bisoprolol and lisinopril for blood pressure control. No GERD symptoms. We will continue Protonix daily. No depressive symptoms, so we will continue home Venlafaxine daily. We will continue to wean oxygen as well, as the patient's saturations are within normal limits when checked on room air. #[id number] [facility]
[2018-07-01] MEDS: SODIUM CHLORIDE 0.45% 1000ML 1,000 ML IVS PRN (19:21)
[2018-07-01] MEDS: DOCUSATE CALCIUM 240 MG CAP PO SCH (20:52)
[2018-07-01] MEDS: NORTRIPTYLINE HCL 25 MG CAP PO SCH (20:52)
[2018-07-01] MEDS: DORZOLAMIDE 2% OPHTH SOL 1 DROP BOTH_EYES SCH (20:53)
[2018-07-01] MEDS: LATANOPROST 0.005% OPTH SOL 2.5 ML BTTL BOTH_EYES SCH (20:53)
[2018-07-02] MEDS: CYCLOBENZAPRINE HCL 10 MG TAB PO PRN ×3 (03:56→11:14)
[2018-07-02] MEDS: ACETAMINOPHEN W/COD #3 TAB 1 EA TAB PO PRN ×5 (03:56→21:12)
[2018-07-02] MEDS: PANTOPRAZOLE SODIUM TAB 40 MG PO SCH (05:59)
[2018-07-02] MEDS: CELECOXIB 100 MG CAP PO SCH ×2 (07:39→17:06)
[2018-07-02] MEDS: INSULIN LISPRO 100 UNITS/ML PEN SUBCU SCH ×4 (07:39→21:38)
[2018-07-02] MEDS: ESTRADIOL TAB 1 MG PO SCH (08:41)
[2018-07-02] MEDS: SITagliptin 50 MG TAB PO SCH (08:42)
[2018-07-02] MEDS: VENLAFAXINE XR 75 MG CAP PO SCH (08:42)
[2018-07-02] MEDS: FENOFIBRIC ACID 135 MG CAP PO SCH (08:42)
[2018-07-02] MEDS: MAGNESIUM OXIDE 400 MG TAB PO SCH (08:42)
[2018-07-02] MEDS: MAGNESIUM CHLORIDE 64 MG TAB PO SCH (08:42)
[2018-07-02] MEDS: CALCIUM POLYCARBOPHIL 625 MG TAB PO SCH ×2 (08:42→21:10)
[2018-07-02] MEDS: ASPIRIN (CHEWABLE) 81 MG TAB PO SCH (08:42)
[2018-07-02] MEDS: CETIRIZINE HCL 10 MG TAB PO SCH (08:43)
[2018-07-02] MEDS: BISACODYL TAB 5 MG TAB PO SCH (08:43)
[2018-07-02] MEDS: FISH OIL 1,200 MG CAP PO SCH ×2 (08:43→21:09)
[2018-07-02] MEDS: GABAPENTIN 100 MG CAP PO SCH ×3 (08:43→21:11)
[2018-07-02] MEDS: BISOPROLOL 5 MG PO SCH (08:43)
[2018-07-02] MEDS: LISINOPRIL 5 MG TAB PO SCH (08:43)
[2018-07-02] MEDS: SODIUM CHLORIDE 0.9% (FLUSH) 10 ML SYG IV SCH ×2 (09:30→21:10)
[2018-07-02] MEDS: ENOXAPARIN SODIUM 30 MG/0.3 ML SYG SUBCU SCH ×2 (11:14→23:10)
--- NOTE | 2018-07-02 11:51 | PN ---
DATE: 06/30/18 POSTOPERATIVE CHECK SUBJECTIVE: She is doing well. She is not having any pain. OBJECTIVE: She is afebrile. Vital signs are stable. Dressing is clean, dry and intact. ASSESSMENT: 1. Status post total knee arthroplasty. PLAN: The plan is to begin weightbearing as tolerated on postoperative day 1. [facility][id number] [facility]
--- NOTE | 2018-07-02 11:53 | PN ---
DATE: 07/01/18 SUBJECTIVE: She is doing pretty well. Her spinal has obviously worn off so she is having a little bit more pain. OBJECTIVE: She is afebrile. Vital signs are stable. Dressing is clean, dry and intact. ASSESSMENT: 1. Status post total knee arthroplasty. PLAN: The plan at this point is for her to continue on with her weightbearing status. #[id number] [facility]
--- NOTE | 2018-07-02 11:58 | PN ---
DATE: 07/02/18 SUBJECTIVE: Ms. Sahu is doing okay but she is requiring max assist. OBJECTIVE: She is afebrile. Vital signs are stable. Wound is clean. There are no signs or symptoms of infection. ASSESSMENT: 1. Status post total knee arthroplasty. PLAN: The plan at this point is for her to continue on with her weightbearing as tolerated. Will continue to progress her CPM. [facility][id number] [facility]
--- NOTE | 2018-07-02 12:10 | PN ---
DATE: 07/02/18 SUBJECTIVE: The patient is doing well today. She is having slightly increased pain due to increased ambulation back and forth to the restroom. She states that she is having to urinate about every hour and is sore in her left knee due to the increased activity, but is otherwise doing well. She has no acute complaints and specifically denies chest pain, dyspnea, fever or chills. OBJECTIVE: VITAL SIGNS: Temperature 99.6 degrees Fahrenheit. Heart rate last documented was 120 per minute done just after ambulation. Blood pressure 140/59 , respiratory rate 20, oxygen saturation 94% on room air. GENERAL: No acute distress. Alert and oriented times three. Participating in physical therapy during my examination. HEENT: Normocephalic and atraumatic. Pupils equal and reactive to light. Extraocular muscles are intact. CARDIOVASCULAR: Mildly tachycardic during CPM with physical therapy. RESPIRATORY: No distress. No conversational dyspnea. Comfortable on room air. MUSCULOSKELETAL: Moves all extremities well, except left lower extremity which is currently undergoing range of motion therapy with Physical Therapy assistance. Dressing is clean, dry and intact to the left lower extremity. ICDs are in place bilaterally. Neurovascularly intact to all extremities. LABORATORY: Blood sugars yesterday at 11:20 were 178, at 1615 were 141, at 2100 were 131, at 0700 this morning were 157. RADIOLOGY: No new imaging. ASSESSMENT: 1. Postoperative day #2 status post left total knee arthroplasty with Dr. Sexton. 2. Type 2 diabetes mellitus with good glycemic control. 3. Hypertension with good blood pressure control. 4. Gastroesophageal reflux disease. 5. History of major depressive disorder. PLAN: Will continue physical therapy for the left knee with a plan for discharge to either home with outpatient physical therapy or to [facility] pending progress. After speaking with assistant librarian today, the patient is not doing as well as yesterday and seems to be needing more assistance and having more pain. Will defer discharge at this time until cleared by Physical Therapy. Pain control per Dr. Sexton. Continue with DVT prophylaxis as well as full anticoagulation per total joint protocol. Blood sugars are well controlled. We will continue Januvia and sliding scale insulin as needed. We will also continue to hold her home Lantus as blood sugars have been well within range without it. Her blood pressures are doing well. We will continue Bisoprolol and Lisinopril. She is not having any current issues with gastroesophageal reflux or with depressive symptoms, so we will continue her home medications for these issues, Protonix and Venlafaxine. She has been weaned from oxygen and is doing well with sats in the mid 90s, so we will continue to monitor this condition. [facility][id number] [facility]
[2018-07-02] MEDS: DOCUSATE CALCIUM 240 MG CAP PO SCH (21:10)
[2018-07-02] MEDS: NORTRIPTYLINE HCL 25 MG CAP PO SCH (21:11)
[2018-07-02] MEDS: LATANOPROST 0.005% OPTH SOL 2.5 ML BTTL BOTH_EYES SCH (21:12)
[2018-07-02] MEDS: DORZOLAMIDE 2% OPHTH SOL 1 DROP BOTH_EYES SCH (21:12)
[2018-07-03] MEDS: ACETAMINOPHEN W/COD #3 TAB 1 EA TAB PO PRN ×4 (06:34→19:35)
[2018-07-03] MEDS: PANTOPRAZOLE SODIUM TAB 40 MG PO SCH (06:35)
[2018-07-03] MEDS: INSULIN LISPRO 100 UNITS/ML PEN SUBCU SCH ×4 (07:23→21:14)
[2018-07-03] MEDS: GABAPENTIN 100 MG CAP PO SCH ×3 (09:01→21:06)
[2018-07-03] MEDS: FISH OIL 1,200 MG CAP PO SCH ×2 (09:01→21:05)
[2018-07-03] MEDS: VENLAFAXINE XR 75 MG CAP PO SCH (09:01)
[2018-07-03] MEDS: FENOFIBRIC ACID 135 MG CAP PO SCH (09:02)
[2018-07-03] MEDS: ESTRADIOL TAB 1 MG PO SCH ×2 (09:02→09:12)
[2018-07-03] MEDS: MAGNESIUM OXIDE 400 MG TAB PO SCH ×3 (09:02→21:06)
[2018-07-03] MEDS: CELECOXIB 100 MG CAP PO SCH ×2 (09:02→17:58)
[2018-07-03] MEDS: CETIRIZINE HCL 10 MG TAB PO SCH (09:02)
[2018-07-03] MEDS: CALCIUM POLYCARBOPHIL 625 MG TAB PO SCH ×2 (09:02→21:05)
[2018-07-03] MEDS: MAGNESIUM CHLORIDE 64 MG TAB PO SCH ×2 (09:02→09:12)
[2018-07-03] MEDS: BISACODYL TAB 5 MG TAB PO SCH (09:02)
[2018-07-03] MEDS: ASPIRIN (CHEWABLE) 81 MG TAB PO SCH (09:02)
[2018-07-03] MEDS: LISINOPRIL 5 MG TAB PO SCH (09:03)
[2018-07-03] MEDS: SODIUM CHLORIDE 0.9% (FLUSH) 10 ML SYG IV SCH ×2 (09:03→21:13)
[2018-07-03] MEDS: SITagliptin 50 MG TAB PO SCH (09:03)
[2018-07-03] MEDS: BISOPROLOL 5 MG PO SCH (09:11)
[2018-07-03] MEDS: IV SET AND CAP CHANGE INJ INJ SCH (11:24)
[2018-07-03] MEDS: ENOXAPARIN SODIUM 30 MG/0.3 ML SYG SUBCU SCH ×2 (11:34→22:47)
[2018-07-03] MEDS ORDERED: BISACODYL SUPPOSITORY 10 MG PR ONE (21:00)
[2018-07-03] MEDS ORDERED: MAGNESIUM HYDROXIDE 30 ML UD PO ONE (21:00)
[2018-07-03] MEDS: DORZOLAMIDE 2% OPHTH SOL 1 DROP BOTH_EYES SCH (21:05)
[2018-07-03] MEDS: NORTRIPTYLINE HCL 25 MG CAP PO SCH (21:05)
[2018-07-03] MEDS: DOCUSATE CALCIUM 240 MG CAP PO SCH (21:05)
[2018-07-03] MEDS: TEMAZEPAM 15 MG CAP PO PRN (21:19)
[2018-07-03] MEDS: LATANOPROST 0.005% OPTH SOL 2.5 ML BTTL BOTH_EYES SCH (21:19)
--- NOTE | 2018-07-03 22:00 | PN ---
DATE: 07/03/18 SUBJECTIVE: The patient has no complaints today other than her postoperative pain which is going as we would anticipate. She complained to the nurses earlier today of a headaches but denies that now. She was up with the nurses ambulating in the room when I entered and decided that she had to urinate and so I excused myself as she started to maker her way towards the bedside commode. The daughter asked if we could hold the baked potato on her tray and we had a brief conversation about hospital diets. The nurses report to me that the patient really has not been very active in her recovery thus far. They are concerned that she is not wanting to bend or straighten the knee or bear weight on it as we would hope at this point. OBJECTIVE: Blood pressure 136/82, pulse 94, pulse oximetry 96% on room air, temperature 98.0. GENERAL: Awake, alert. She is not in distress. She does not appear to be in pain, although she is standing in the room with her walker with nurses by her side. LABORATORY: Postoperative H&H is 9.9 and 30.2 (July 01). ASSESSMENT: 1. Postoperative day #3 status post left total knee arthroplasty. 2. Hypertension, well controlled. 3. Type 2 diabetes, well controlled. 4. Gastroesophageal reflux disease, well controlled 5. Depression, controlled. PLAN: The patient is undergoing routine post TKA care with Physical Therapy, DVT prophylaxis, etc. Her medical problems are adequately controlled at this time. The patient is going to need to be more active in the upcoming days with her therapy. She is probably going to do fine but may need a little extra care and encouragement. She is probably a really good candidate for a rehab hospital and we are probably going to have to start making those decisions in the next couple of days. #[id number] [facility]
[2018-07-04] MEDS: ACETAMINOPHEN W/COD #3 TAB 1 EA TAB PO PRN ×5 (02:45→22:37)
[2018-07-04] MEDS: PANTOPRAZOLE SODIUM TAB 40 MG PO SCH (06:28)
[2018-07-04] MEDS: CELECOXIB 100 MG CAP PO SCH ×2 (07:11→17:08)
[2018-07-04] MEDS: INSULIN LISPRO 100 UNITS/ML PEN SUBCU SCH ×4 (07:12→21:37)
[2018-07-04] MEDS: SITagliptin 50 MG TAB PO SCH (09:01)
[2018-07-04] MEDS: ASPIRIN (CHEWABLE) 81 MG TAB PO SCH (09:01)
[2018-07-04] MEDS: VENLAFAXINE XR 75 MG CAP PO SCH (09:01)
[2018-07-04] MEDS: LISINOPRIL 5 MG TAB PO SCH (09:01)
[2018-07-04] MEDS: CETIRIZINE HCL 10 MG TAB PO SCH (09:02)
[2018-07-04] MEDS: FENOFIBRIC ACID 135 MG CAP PO SCH (09:02)
[2018-07-04] MEDS: FISH OIL 1,200 MG CAP PO SCH ×2 (09:02→21:34)
[2018-07-04] MEDS: GABAPENTIN 100 MG CAP PO SCH ×3 (09:02→21:35)
[2018-07-04] MEDS: BISACODYL TAB 5 MG TAB PO SCH (09:02)
[2018-07-04] MEDS: BISOPROLOL 5 MG PO SCH (09:06)
[2018-07-04] MEDS: CALCIUM POLYCARBOPHIL 625 MG TAB PO SCH ×2 (09:08→21:34)
[2018-07-04] MEDS: SODIUM CHLORIDE 0.9% (FLUSH) 10 ML SYG IV SCH ×2 (09:30→21:36)
[2018-07-04] MEDS: ENOXAPARIN SODIUM 30 MG/0.3 ML SYG SUBCU SCH ×2 (11:10→22:37)
[2018-07-04] MEDS: NORTRIPTYLINE HCL 25 MG CAP PO SCH (21:35)
[2018-07-04] MEDS: MAGNESIUM OXIDE 400 MG TAB PO SCH (21:35)
[2018-07-04] MEDS: DOCUSATE CALCIUM 240 MG CAP PO SCH (21:35)
[2018-07-04] MEDS: LATANOPROST 0.005% OPTH SOL 2.5 ML BTTL BOTH_EYES SCH (21:36)
[2018-07-04] MEDS: DORZOLAMIDE 2% OPHTH SOL 1 DROP BOTH_EYES SCH (21:36)
[2018-07-05] MEDS: TEMAZEPAM 15 MG CAP PO PRN ×2 (00:53→21:22)
[2018-07-05] MEDS: ACETAMINOPHEN W/COD #3 TAB 1 EA TAB PO PRN ×5 (05:03→22:10)
[2018-07-05] MEDS: PANTOPRAZOLE SODIUM TAB 40 MG PO SCH (06:43)
[2018-07-05] MEDS: INSULIN LISPRO 100 UNITS/ML PEN SUBCU SCH ×4 (07:40→21:06)
[2018-07-05] MEDS: CELECOXIB 100 MG CAP PO SCH ×2 (07:46→16:55)
[2018-07-05] MEDS: GABAPENTIN 100 MG CAP PO SCH ×3 (08:51→21:21)
[2018-07-05] MEDS: SITagliptin 50 MG TAB PO SCH (08:52)
[2018-07-05] MEDS: FISH OIL 1,200 MG CAP PO SCH ×2 (08:52→21:21)
[2018-07-05] MEDS: FENOFIBRIC ACID 135 MG CAP PO SCH (08:53)
[2018-07-05] MEDS: LISINOPRIL 5 MG TAB PO SCH (08:53)
[2018-07-05] MEDS: CALCIUM POLYCARBOPHIL 625 MG TAB PO SCH ×2 (08:53→21:21)
[2018-07-05] MEDS: VENLAFAXINE XR 75 MG CAP PO SCH (08:55)
[2018-07-05] MEDS: CETIRIZINE HCL 10 MG TAB PO SCH (08:55)
[2018-07-05] MEDS: ASPIRIN (CHEWABLE) 81 MG TAB PO SCH (08:56)
[2018-07-05] MEDS: BISACODYL TAB 5 MG TAB PO SCH (08:57)
[2018-07-05] MEDS: BISOPROLOL 5 MG PO SCH (09:18)
--- NOTE | 2018-07-05 09:22 | PN ---
DATE: 07/05/18 SUBJECTIVE: Ms. Sahu has improved since over this weekend. Her pain has gotten significantly better. OBJECTIVE: Afebrile. Vital signs stable. Wound is clean. There are no signs or symptoms of infection. ASSESSMENT: Status post total knee arthroplasty. PLAN: At this point, I think Ms. Sahu would benefit from more aggressive inpatient rehab at a facility such as [facility]. We are going to talk to her about that and see if we can facilitate that transfer. #[id number] [facility]
[2018-07-05] MEDS: ENOXAPARIN SODIUM 30 MG/0.3 ML SYG SUBCU SCH ×2 (11:49→23:12)
[2018-07-05] MEDS ORDERED: AMITRIPTYLINE HCL 25 MG TAB ONE (20:34)
[2018-07-05] MEDS ORDERED: ACETAMINOPHEN W/COD #3 TAB 1 EA TAB ONE (21:20)
[2018-07-05] MEDS: DOCUSATE CALCIUM 240 MG CAP PO SCH (21:21)
[2018-07-05] MEDS: NORTRIPTYLINE HCL 25 MG CAP PO SCH (21:21)
[2018-07-05] MEDS: LATANOPROST 0.005% OPTH SOL 2.5 ML BTTL BOTH_EYES SCH (21:22)
[2018-07-05] MEDS: DORZOLAMIDE 2% OPHTH SOL 1 DROP BOTH_EYES SCH (21:22)
[2018-07-05] MEDS: MAGNESIUM OXIDE 400 MG TAB PO SCH (21:22)
[2018-07-05] MEDS: ALUMINUM & MAGNESIUM HYDROXIDE 30 ML UD PO PRN (21:23)
[2018-07-06] MEDS: ACETAMINOPHEN W/COD #3 TAB 1 EA TAB PO PRN ×4 (06:05→19:48)
[2018-07-06] MEDS: PANTOPRAZOLE SODIUM TAB 40 MG PO SCH (06:06)
[2018-07-06] MEDS: CELECOXIB 100 MG CAP PO SCH ×2 (07:55→16:21)
[2018-07-06] MEDS: INSULIN LISPRO 100 UNITS/ML PEN SUBCU SCH ×4 (07:56→21:05)
[2018-07-06] MEDS: BISOPROLOL 5 MG PO SCH (08:34)
[2018-07-06] MEDS: FISH OIL 1,200 MG CAP PO SCH ×2 (08:35→21:04)
[2018-07-06] MEDS: FENOFIBRIC ACID 135 MG CAP PO SCH (08:35)
[2018-07-06] MEDS: GABAPENTIN 100 MG CAP PO SCH ×3 (08:35→21:03)
[2018-07-06] MEDS: BISACODYL TAB 5 MG TAB PO SCH (08:35)
[2018-07-06] MEDS: CALCIUM POLYCARBOPHIL 625 MG TAB PO SCH ×2 (08:35→21:04)
[2018-07-06] MEDS: ASPIRIN (CHEWABLE) 81 MG TAB PO SCH (08:35)
[2018-07-06] MEDS: VENLAFAXINE XR 75 MG CAP PO SCH (08:35)
[2018-07-06] MEDS: SITagliptin 50 MG TAB PO SCH (08:35)
[2018-07-06] MEDS: CETIRIZINE HCL 10 MG TAB PO SCH (08:36)
[2018-07-06] MEDS: LISINOPRIL 5 MG TAB PO SCH (08:36)
[2018-07-06] MEDS: ENOXAPARIN SODIUM 30 MG/0.3 ML SYG SUBCU SCH ×2 (10:36→23:03)
--- NOTE | 2018-07-06 14:31 | PN ---
DATE: 07/04/18 SUBJECTIVE: Ms. Sahu is improved. Her pain continues to decrease. OBJECTIVE: Afebrile. Vital signs stable. Dressing is clean, dry and intact. ASSESSMENT: Status post total knee arthroplasty. PLAN: She will continue with weight-bearing as tolerated as well as CPM. She will likely be a good candidate for inpatient rehab. [facility][id number] [facility]
--- NOTE | 2018-07-06 14:33 | PN ---
DATE: 07/06/18 SUBJECTIVE: Ms. Sahu is doing really well and is getting out of bed with minimal assist. OBJECTIVE: Afebrile. Vital signs stable. Wound is clean. There are no signs or symptoms of infection. ASSESSMENT: Status post total knee arthroplasty. PLAN: At this point, she is awaiting approval for placement at [facility]. We will facilitate that and transfer her when she is accepted. [facility][id number] [facility]
[2018-07-06] MEDS: MAGNESIUM OXIDE 400 MG TAB PO SCH (21:03)
[2018-07-06] MEDS: DOCUSATE CALCIUM 240 MG CAP PO SCH (21:03)
[2018-07-06] MEDS: DORZOLAMIDE 2% OPHTH SOL 1 DROP BOTH_EYES SCH (21:04)
[2018-07-06] MEDS: TEMAZEPAM 15 MG CAP PO PRN (21:04)
[2018-07-06] MEDS: NORTRIPTYLINE HCL 25 MG CAP PO SCH (21:04)
[2018-07-06] MEDS: LATANOPROST 0.005% OPTH SOL 2.5 ML BTTL BOTH_EYES SCH (21:04)
[2018-07-07] MEDS: ACETAMINOPHEN W/COD #3 TAB 1 EA TAB PO PRN ×5 (02:02→18:20)
[2018-07-07] MEDS: PANTOPRAZOLE SODIUM TAB 40 MG PO SCH (06:49)
[2018-07-07] MEDS: INSULIN LISPRO 100 UNITS/ML PEN SUBCU SCH ×4 (07:16→20:58)
[2018-07-07] MEDS: CELECOXIB 100 MG CAP PO SCH ×2 (07:32→16:41)
[2018-07-07] MEDS: CALCIUM POLYCARBOPHIL 625 MG TAB PO SCH ×2 (08:41→20:41)
[2018-07-07] MEDS: GABAPENTIN 100 MG CAP PO SCH ×3 (08:41→20:41)
[2018-07-07] MEDS: BISOPROLOL 5 MG PO SCH (08:41)
[2018-07-07] MEDS: SITagliptin 50 MG TAB PO SCH (08:41)
[2018-07-07] MEDS: FISH OIL 1,200 MG CAP PO SCH ×3 (08:41→20:41)
[2018-07-07] MEDS: BISACODYL TAB 5 MG TAB PO SCH (08:42)
[2018-07-07] MEDS: VENLAFAXINE XR 75 MG CAP PO SCH (08:42)
[2018-07-07] MEDS: ASPIRIN (CHEWABLE) 81 MG TAB PO SCH (08:42)
[2018-07-07] MEDS: LISINOPRIL 5 MG TAB PO SCH (08:42)
[2018-07-07] MEDS: FENOFIBRIC ACID 135 MG CAP PO SCH (08:43)
[2018-07-07] MEDS: CETIRIZINE HCL 10 MG TAB PO SCH (08:43)
[2018-07-07] MEDS: ENOXAPARIN SODIUM 30 MG/0.3 ML SYG SUBCU SCH ×3 (11:01→22:47)
--- NOTE | 2018-07-07 13:05 | PN ---
DATE: 07/07/18 SUBJECTIVE: Ms. Sahu today is doing well and her pain is improving. CPM is up to 100 degrees. OBJECTIVE: Afebrile. Vital signs stable. Wound is clean. There are no signs or symptoms of infection. ASSESSMENT: Status post total knee arthroplasty. PLAN: The plan at this point is for her to potentially be discharged to inpatient rehab. If she is not accepted, we will likely discharge her in two days after further work with physical therapy. #[id number] [facility]
--- NOTE | 2018-07-07 19:32 | PN ---
DATE: 07/07/18 SUPERVISING PHYSICIAN: Kenyon Banerjee M.D. SUBJECTIVE: The patient is lying in bed. She has no complaints. States she feels much better. She has been ambulating in the alvarez with Physical Therapy. I explained to the family that [facility] had denied her transfer to [facility] for rehab. It is recommended that she stay 1 additional day for physical therapy. They were given a choice to have home health physical therapy or [facility] therapy at their Physical Therapy Department. They opted to do outpatient physical therapy. OBJECTIVE: She is afebrile, heart rate 75, blood pressure 100/65, respiratory rate 14, O2 sat 95% on room air. RESPIRATORY: Essentially clear to auscultation bilaterally. CARDIAC: Regular rate and rhythm. GASTROINTESTINAL: Abdomen is soft, nondistended, non-tender. Bowel sounds are positive. EXTREMITIES: She has a dressing to her left knee that is dry and intact. There is very minimal swelling with no erythema. Bilateral pedal pulses are palpable at +2. NEUROLOGIC: She is awake, alert and oriented times three. LABORATORY: There are no labs and films to report at this time. ASSESSMENT: 1. Postoperative day #7 status post left total knee arthroplasty. 2. Hypertension, well controlled. 3. Type 2 diabetes, well controlled. 4. Gastroesophageal reflux disease, well controlled. 5. Depression, controlled. PLAN: We will continue present supportive care. She will continue with her physical therapy tomorrow and will be discharged after her therapy session. She will start at [facility]'s Physical Therapy Department at 1:30 on Tuesday, July 10. Her family agreed to the plan of care. A prescription was written for a rolling walker. We will continue to monitor her closely and follow as needed. #[id number] [facility]
[2018-07-07] MEDS ORDERED: ACETAMINOPHEN W/COD #3 TAB 1 EA TAB PO ONE (20:05)
[2018-07-07] MEDS: MAGNESIUM OXIDE 400 MG TAB PO SCH (20:41)
[2018-07-07] MEDS: NORTRIPTYLINE HCL 25 MG CAP PO SCH (20:41)
[2018-07-07] MEDS: DOCUSATE CALCIUM 240 MG CAP PO SCH (20:41)
[2018-07-07] MEDS: DORZOLAMIDE 2% OPHTH SOL 1 DROP BOTH_EYES SCH (20:41)
[2018-07-07] MEDS: TEMAZEPAM 15 MG CAP PO PRN (21:05)
[2018-07-07] MEDS: LATANOPROST 0.005% OPTH SOL 2.5 ML BTTL BOTH_EYES SCH (21:05)
[2018-07-08] MEDS: ACETAMINOPHEN W/COD #3 TAB 1 EA TAB PO PRN ×3 (02:33→11:29)
[2018-07-08] MEDS ORDERED: NITROGLYCERIN 0.4 MG 25 EA TAB SL PRN (03:14)
[2018-07-08] MEDS ORDERED: MORPHINE SULFATE INJ 10 MG/ML VIAL IV ONE (03:15)
[2018-07-08] MEDS ORDERED: MORPHINE SULFATE INJ 10 MG/ML VIAL IM ONE (03:15)
[2018-07-08] MEDS: ALUMINUM & MAGNESIUM HYDROXIDE 30 ML UD PO PRN (03:31)
[2018-07-08] MEDS ORDERED: ACETAMINOPHEN W/COD #3 TAB 1 EA TAB PO ONE ×2 (04:11→11:28)
[2018-07-08] MEDS: PANTOPRAZOLE SODIUM TAB 40 MG PO SCH (06:17)
[2018-07-08] MEDS: CELECOXIB 100 MG CAP PO SCH (08:31)
[2018-07-08] MEDS ORDERED: RIVAROXABAN 10 MG TAB PO ONE (09:43)
[2018-07-08] MEDS: SITagliptin 50 MG TAB PO SCH (10:00)
[2018-07-08] MEDS: FENOFIBRIC ACID 135 MG CAP PO SCH (10:01)
[2018-07-08] MEDS: CETIRIZINE HCL 10 MG TAB PO SCH (10:01)
[2018-07-08] MEDS: GABAPENTIN 100 MG CAP PO SCH (10:02)
[2018-07-08] MEDS: CALCIUM POLYCARBOPHIL 625 MG TAB PO SCH (10:02)
[2018-07-08] MEDS: LISINOPRIL 5 MG TAB PO SCH (10:02)
[2018-07-08] MEDS: VENLAFAXINE XR 75 MG CAP PO SCH (10:02)
[2018-07-08] MEDS: ASPIRIN (CHEWABLE) 81 MG TAB PO SCH (10:04)
[2018-07-08] MEDS: BISOPROLOL 5 MG PO SCH (10:04)
[2018-07-08] MEDS: BISACODYL TAB 5 MG TAB PO SCH (10:04)
[2018-07-08] MEDS: FISH OIL 1,200 MG CAP PO SCH (10:04)
[2018-07-08] MEDS: INSULIN LISPRO 100 UNITS/ML PEN SUBCU SCH ×2 (10:05→12:24)
[2018-07-08 11:40] VITALS: BP 126/70; TEMP 98.2; O2SAT 97
--- NOTE | 2018-07-08 16:34 | DS ---
SUPERVISING PHYSICIAN: Kenyon Banerjee M.D. DISCHARGE DIAGNOSIS: 1. Postoperative day #8 status post left total knee arthroplasty per Dr. Carlos Sexton, orthopedic surgeon. 2. Hypertension, well controlled. 3. Type 2 diabetes, well controlled. 4. Gastroesophageal reflux disease, well controlled. 5. Depression, controlled. HISTORY OF PRESENT ILLNESS: This is a 77 year-old female patient who was admitted on 06/30/18 for a left total knee arthroplasty per Dr. Carlos Sexton, orthopedic surgeon. She had a longstanding history of arthritis and pain with both knees. She has tried multiple attempts at conservative measures for relief of pain but failed to provide any significant improvement. She requested operative procedure per Dr. Carlos Sexton, orthopedic surgeon for a left total knee arthroplasty. Intraoperatively she had no complications. HOSPITAL COURSE: Initially the patient had no problems other than her physical therapy was slow. She was somewhat lethargic for 1 to 2 days after her surgical procedure. At times she got confused. For 2 to 3 days it took 2 people to assist with any activities as well as full assist. Initially because of her slow progress on her physical therapy she was evaluated by [facility] in [place], but over the last 2 to 3 days she has improved dramatically, including her mental status and has been able to follow her physical therapy as planned. [facility] denied her rehab at [facility] in [place] and it was felt that with the assistance of Physical Therapy for 1 additional day that she could be discharged home and to followup with physical therapy at [facility]'s physical therapy department on an outpatient basis. During her hospital stay she was on Tylenol #3 which she is on as an outpatient. She did require occasional extra dosing of Tylenol #3 due to her pain issues. Last night the patient ate her supper from [id number] and during the night she complained of chest pain. Her initial set of cardiac enzymes were negative as well as there were no changes on her EKG. Cardiac enzymes were repeated this morning and they were also negative, and there were also no changes on her second EKG. The patient was given Maalox and the chest pain resolved. After a lengthy discharges with the family, they agreed to outpatient physical therapy. A physical therapist deemed that she was safe to go home with a rolling walker which has been ordered. She will be discharged home today in stable condition. DISCHARGE PLAN: The patient will be discharged home today in stable condition. She received 1 physical therapy session today and she will be discharged with a rolling walker. She is also being discharged with 3 additional days of Xarelto as well as some Restoril to help her sleep at night. She is to resume her previous medications. I did not send her home with any extra pain medications. I did recommend to the patient that occasionally she may have to take an extra Tylenol #3 over the next 2 to 3 days until her pain gets under control. She is to followup with Dr. Sexton in the next 2 weeks and to call his office for an appointment. I have gotten her a followup appointment with her primary care physician, Dr. Farr, on 07/17/18 at 9:00 AM. Her physical therapy begins 07/10/18 at 1:30 at [facility] outpatient physical therapy. She is to return to the hospital or call Dr. Sexton's office for any problems or complications. DISCHARGE MEDICATIONS: 1. Multivitamins. 2. Baby aspirin. 3. Effexor. 4. Lantus insulin. 5. Clonazepam. 6. Pantoprazole. 7. TriCor. 8. Bisoprolol. 9. Lisinopril. 10. FiberCon. 11. Januvia. 12. [place]-3 fatty acids. 13. Nortriptyline. 14. Meloxicam. 15. Magnesium chloride. 16. Xalatan ophthalmic drops. 17. Humalog insulin. 18. Gabapentin. 19. Trusopt ophthalmic drops. 20. Co Enzyme Q10. 21. Cinnamon. 22. Bisacodyl. 23. Acetaminophen with codeine #3. 24. Glucosamine chondroitin. 25. Xarelto. 26. Restoril. #[id number] [facility]
== END 2018-07-08 13:30 | disposition home or self-care (01) | DRG 470 ==
LOC: AMB 05:29 → MS 12:30 → UNDOADMIN 12:30
PROVIDERS: ADMIT Orthopaedic Surgery; ATTEND Nurse Practitioner Acute Care
PROC: 0SRD0J9 Replacement of Left Knee Joint with Synthetic Substitute, Cemented, Open Approach (ICD-10-PCS; principal; 2018-06-30 08:35)
DX: M17.0 Bilateral primary osteoarthritis of knee (principal); Z88.5 Allergy status to narcotic agent; Z88.1 Allergy status to other antibiotic agents; I10 Essential (primary) hypertension; E11.51 Type 2 diabetes mellitus with diabetic peripheral angiopathy without gangrene; K21.9 Gastro-esophageal reflux disease without esophagitis; F32.9 Major depressive disorder, single episode, unspecified; Z79.82 Long term (current) use of aspirin; Z79.4 Long term (current) use of insulin; I25.10 Atherosclerotic heart disease of native coronary artery without angina pectoris

== ENCOUNTER → 2018-08-18 | Outpatient (CLI) | payer OTHER | LOC: GMAM 09:43 | PROVIDERS: ATTEND Family Medicine | DX: E83.52 Hypercalcemia (principal) ==

== ENCOUNTER → 2018-12-04 | Outpatient (CLI) | payer OTHER | LOC: LAB.O 11:30 | PROVIDERS: ATTEND Orthopaedic Surgery | DX: Z01.818 Encounter for other preprocedural examination (principal) ==

== ENCOUNTER 2018-12-19 05:31 | Inpatient (IN) | payer OTHER ==
--- NOTE | 2018-12-15 10:11 | HP ---
CHIEF COMPLAINT: Right knee pain. HISTORY OF PRESENT ILLNESS: Chante is a 78-year-old female with a history of pain in the right knee. She has had left total knee replacement and has recovered well from that. She complains of pain that is diffuse without radiation or neurologic symptoms. She has never had any trauma associated with the onset of this. Because of the ongoing pain and failure of conservative measures, she has requested operative intervention. After discussing the risks, benefits and alternatives to that, she has given informed consent. PAST SURGICAL HISTORY: 1. Laminectomy. 2. Appendectomy. 3. Hysterectomy. 4. Total knee arthroplasty. MEDICATIONS: 1. Atorvastatin. 2. Bisoprolol. 3. Clonazepam. 4. Dorzolamide. 5. Fenofibrate. 6. Gabapentin. 7. Humalog. 8. Januvia. 9. Lantus. 10. Latanoprost. 11. Lisinopril. 12. Mupirocin. 13. Venlafaxine. 14. Zostavax. 15. Tylenol with codeine. 16. Nortriptyline. ALLERGIES: CEPHALOSPORINS, TRAMADOL. CODE STATUS: Full code. IMMUNIZATIONS: Up to date. FAMILY HISTORY: None pertinent to today's complaint. REVIEW OF SYSTEMS: Negative except as indicated in the History of Present Illness. PHYSICAL EXAMINATION: VITAL SIGNS: Blood pressure 106/61. Pulse 79. Height 5'1". Weight 144 pounds. MENTAL STATUS: The patient is awake, alert, and is able to give a good history and participate in the physical. The patient is oriented to person, place and time. SKIN: Normal tone and turgor. HEENT: Normocephalic, atraumatic. Pupils equal, round and reactive. Mucosal membranes are moist. NECK: Normal range of motion. No thyromegaly, no lymphadenopathy. CHEST: Normal respiratory excursion. CARDIAC: Regular rate and rhythm. No murmurs, rubs or gallops. MUSCULOSKELETAL: The bilateral upper extremities show full range of motion without significant pain. Sensation is intact in both extremities and they are warm and well perfused. She has no deformities and no crepitus with range of motion. The left lower extremity shows full range of motion of the hip. She has a well- healed scar on the anterior aspect of the hip. Sensation is intact and it is warm and well perfused. The right lower extremity shows valgus deformity. She does have crepitus and pain throughout her range of motion. She lacks about 5 degrees of extension. The extremity has some slight laxity in valgus stress testing. Flexion today is 85 degrees. IMAGING: X-rays show advanced arthritis with valgus deformity. ASSESSMENT: 1. Arthritis. PLAN: The plan at this point is for total knee arthroplasty. We have discussed the risks, benefits, and alternatives to that and the patient has given informed consent. #[id number] [facility]
[2018-12-19] MEDS ORDERED: TRANEXAMIC ACID 1,000 MG/10 ML VIAL ONE ×2 (05:49→06:01)
[2018-12-19] MEDS ORDERED: LACTATED RINGERS 1,000 ML ONE (05:49)
[2018-12-19] MEDS ORDERED: VANCOMYCIN HCL INJ 1,000 MG VIAL IVPB ONE ×6 (05:50→19:45)
[2018-12-19] MEDS ORDERED: SODIUM CHLORIDE 0.9% 250ML 250 ML ONE ×3 (05:50→19:43)
[2018-12-19] MEDS ORDERED: SODIUM CHLORIDE 0.9% 100ML 100 ML IVPB ONE (05:50)
[2018-12-19] MEDS ORDERED: CLINDAMYCIN IV 900MG 50 ML IVPB ONE ×2 (05:50→07:38)
[2018-12-19] MEDS ORDERED: ceFAZolin SODIUM 1 GM VIAL ONE ×2 (06:25→06:31)
[2018-12-19] MEDS ORDERED: MORPHINE SULFATE *EPIDURAL* 0.5 MG/ML VIAL ONE (06:28)
[2018-12-19] MEDS ORDERED: BUPIVACAINE LIPOSOME 13.3 MG/ML VIAL INJ ONE (06:28)
[2018-12-19] MEDS ORDERED: MIDAZOLAM INJ 5 MG/5 ML VIAL ONE (06:28)
[2018-12-19] MEDS ORDERED: fentaNYL CITRATE INJ 50 MCG/ML AMP ONE (06:28)
[2018-12-19] MEDS ORDERED: ACETAMINOPHEN IV 1000MG 100 ML ONE (06:28)
[2018-12-19] MEDS: BUPIVACAINE 0.5% 30 ML VIAL INJ ONE ×2 (08:12→08:39)
[2018-12-19] MEDS: BUPIVACAINE LIPOSOME 13.3 MG/ML VIAL INJ ONE ×2 (08:12→08:39)
[2018-12-19] MEDS ORDERED: ALUMINUM & MAGNESIUM HYDROXIDE 30 ML UD PO PRN (09:03)
[2018-12-19] MEDS ORDERED: MAGNESIUM HYDROXIDE 30 ML UD PO PRN (09:03)
[2018-12-19] MEDS ORDERED: SODIUM CHLORIDE 0.9% (FLUSH) 10 ML SYG IV PRN (09:03)
[2018-12-19] MEDS ORDERED: HYDROcodone 5MG/APAP 325MG 1 EA TAB PO PRN (09:03)
[2018-12-19] MEDS ORDERED: ONDANSETRON INJ 4 MG/2 ML VIAL IV PRN (09:03)
[2018-12-19] MEDS ORDERED: CYCLOBENZAPRINE HCL 10 MG TAB PO PRN (09:03)
[2018-12-19] MEDS ORDERED: BISACODYL SUPPOSITORY 10 MG PR PRN (09:03)
[2018-12-19] MEDS ORDERED: ACETAMINOPHEN 500 MG TAB PO PRN (09:03)
[2018-12-19] MEDS ORDERED: TRANEXAMIC ACID INJ 1,000 MG in SODIUM CHLORIDE 0.9% 100ML 100 ML IVPB ONE (09:03)
[2018-12-19] MEDS ORDERED: NALOXONE HCL INJ 0.4 MG/ML VIAL IV PRN (09:03)
[2018-12-19] MEDS ORDERED: DEX 5% W/NACL 0.45% 1000ML 1,000 ML IVS PRN (09:03)
[2018-12-19] MEDS ORDERED: ACETAMINOPHEN 325 MG TAB PO PRN (09:03)
[2018-12-19] MEDS ORDERED: BENZOCAINE-MENTH LOZ (CEPACOL) 1 EA LOZ MT PRN (09:03)
[2018-12-19] MEDS ORDERED: ZOLPIDEM TARTRATE 5 MG TAB PO PRN (09:03)
[2018-12-19] MEDS ORDERED: PROMETHAZINE HCL INJ 25 MG in SODIUM CHLORIDE 0.9% 50ML 50 ML IVPB PRN (09:03)
[2018-12-19] MEDS ORDERED: TEMAZEPAM 15 MG CAP PO PRN (09:03)
[2018-12-19] MEDS ORDERED: PROMETHAZINE HCL INJ 12.5 MG in SODIUM CHLORIDE 0.9% 50ML 50 ML IVPB PRN (09:03)
[2018-12-19] MEDS ORDERED: MORPHINE PCA 1 MG/ML 100 ML BAG IVPB SCH (09:30)
[2018-12-19] MEDS: MORPHINE SULFATE INJ 10 MG/ML VIAL IM PRN ×2 (09:56→10:26)
[2018-12-19] MEDS ORDERED: PROPOFOL 200 MG/20 ML VIAL IV ONE (10:00)
[2018-12-19] MEDS ORDERED: METOCLOPRAMIDE HCL INJ 10 MG/2 ML VIAL IV ONE (10:00)
[2018-12-19] MEDS ORDERED: raNITIdine HCL INJ 25 MG/ML VIAL IV ONE (10:00)
[2018-12-19] MEDS ORDERED: ePHEDrine SULF 50 MG/ML IV ONE (10:00)
[2018-12-19] MEDS ORDERED: LIDOCAINE 1% 10 ML VIAL INJ ONE (10:00)
[2018-12-19] MEDS ORDERED: DEXAMETHASONE INJ 10 MG/ML VIAL IV ONE (10:00)
[2018-12-19] MEDS ORDERED: SODIUM CHLORIDE 0.45% 1000ML 1,000 ML IVS ONE (10:54)
--- NOTE | 2018-12-19 11:16 | RAD ---
EXAM: FL LESS THAN 1 HOUR DATE: 12/19/2018 Ordering provider: Carlos Sexton CLINICAL INDICATION: RIGHT TKA COMPARISON: None. FINDINGS: 1 intraoperative fluoroscopic image submitted for review. Image demonstrates postsurgical changes of total right knee arthroplasty. Please refer to operative report for details. Fluoroscopy time: 2 seconds. IMPRESSION: Intraoperative fluoroscopy. Electronically signed by: Jerardo Gupta MD 12/19/2018 11:13 AM [facility]
[2018-12-19] MEDS ORDERED: SODIUM CHLORIDE 0.45% 1000ML 1,000 ML IVS PRN (12:00)
--- NOTE | 2018-12-19 14:22 | RAD ---
EXAM DESCRIPTION: Knee,Right 2 or More Views CLINICAL HISTORY: 78 years, Female, TKA COMPARISON: None TECHNIQUE: Two views right knee FINDINGS: Two views right knee demonstrate demonstrate placement of a right knee prosthesis with metallic femoral and tibial components well applied to the underlying bone and surrounding gas from current operation. Patella is not well seen but I do not appreciate a definite placement of a patellar articular surface on these two views. Alignment appears to be essentially anatomic. IMPRESSION: 1. Right total knee replacement with metallic femoral and tibial components well applied to the underlying bone and essentially normal alignment. Electronically signed by: Mukul Fitzpatrick MD 12/19/2018 2:19 PM [facility]
[2018-12-19] MEDS ORDERED: CLINDAMYCIN IV 600MG 50 ML IVPB ONE ×2 (15:08→19:43)
[2018-12-19] MEDS: CLINDAMYCIN IV 600MG 600 MG in PREMIX BAG 1 BAG IVPB SCH ×2 (15:17→20:01)
[2018-12-19] MEDS ORDERED: GLUCAGON INJ 1 MG VIAL SUBCU PRN (15:21)
[2018-12-19] MEDS ORDERED: DEXTROSE 50% 25 GM/50 ML SYG IV PRN (15:21)
[2018-12-19] MEDS: INSULIN LISPRO 100 UNITS/ML PEN SUBCU SCH ×2 (17:12→21:48)
[2018-12-19] MEDS: CELECOXIB 100 MG CAP PO SCH (17:19)
[2018-12-19] MEDS: VANCOMYCIN HCL INJ 1,000 MG in SODIUM CHLORIDE 0.9% 250ML 250 ML IVPB SCH (17:20)
[2018-12-19] MEDS: ASPIRIN (CHEWABLE) 81 MG TAB PO SCH (17:20)
[2018-12-19] MEDS: IV SET AND CAP CHANGE INJ INJ SCH (19:37)
[2018-12-19] MEDS ORDERED: ENOXAPARIN SODIUM 30 MG/0.3 ML SYG SUBCU ONE (19:46)
[2018-12-19] MEDS: DORZOLAMIDE 2% OPHTH SCH (21:23)
[2018-12-19] MEDS: GABAPENTIN 100 MG CAP PO SCH (21:24)
[2018-12-19] MEDS: FENOFIBRIC ACID 135 MG CAP PO SCH (21:24)
[2018-12-19] MEDS: DOCUSATE CALCIUM 240 MG CAP PO SCH (21:24)
[2018-12-19] MEDS: ATORVASTATIN 20 MG TAB PO SCH (21:24)
[2018-12-19] MEDS: LATANOPROST BOTH_EYES SCH (21:32)
[2018-12-19] MEDS: INSULIN GLARGINE SUBCU SCH (21:49)
[2018-12-19] MEDS: [UNRECOGNIZED DRUG - OTHER] SUBCU SCH (21:49)
--- NOTE | 2018-12-19 22:29 | CONS ---
DATE OF CONSULTATION: 12/19/18 SUPERVISING PHYSICIAN: Kenyon Banerjee M.D. REASON FOR CONSULTATION: Total right knee arthroplasty. HISTORY OF PRESENT ILLNESS: Ms. Sahu is a 78 year-old female patient with a longstanding history of pain in her right knee. She has had her left knee replaced in the last couple of years which did fairly well. She noted that the pain had become diffuse without any radiation or other neurological symptoms. She had failed to respond to any outpatient measures, including pain relief with injections and physical therapy, therefore she requested surgical intervention for symptom control. She was admitted today for an elective total right knee arthroplasty. She had no complications intraoperatively. She was seen in the postoperative state in stable condition. PAST MEDICAL HISTORY: 1. Coronary artery disease. 2. Hypertension. 3. Peripheral vascular disease. 4. Gastroesophageal reflux disease. 5. History of Clostridium Difficile colitis in 2005. 6. Type 2 diabetes mellitus. 7. History of gastrointestinal bleed after NSAIDs and steroids. PAST SURGICAL HISTORY: 1. Laminectomy. 2. Appendectomy. 3. Hysterectomy. 4. Bilateral cataract removal. 5. Tonsillectomy. 6. Total left knee arthroplasty. HOME MEDICATIONS: Please see an updated list of home medications that have been verified in the electronic medical records. ALLERGIES: CEPHALOSPORINS, KETOROLAC, METFORMIN AND TRAMADOL. FAMILY HISTORY: Significant for myocardial infarctions. Father at age 84. Mother at age 86 secondary to lung cancer. SOCIAL HISTORY: Ms. Sahu lives in [place]. She is , retired. She has never smoked. She does not drink alcohol. She does not use illicit drugs. REVIEW OF SYSTEMS: CONSTITUTIONAL: Denies any fevers, chills, body aches or unintentional weight loss. HEENT: No nasal congestion, headaches, sore throat, ear aches. RESPIRATORY: Denies any shortness of breath, cough or wheezing. CARDIOVASCULAR: Denies any chest pains, palpitations, syncopal episodes. GASTROINTESTINAL: Denies any nausea, vomiting, diarrhea, constipation or abdominal pains. GENITOURINARY: Denies any dysuria, hematuria, polyuria or other urinary symptoms. MUSCULOSKELETAL: As noted in history of present illness. NEUROLOGIC: Denies any syncopal episodes, ataxia, seizures or other neurological deficits. PHYSICAL EXAMINATION: VITAL SIGNS: Temperature 98, pulse 87, blood pressure 104/66, respirations 16, satting 96% on room air. GENERAL: The patient is resting comfortably. Appears to be in no acute distress. Iceman and dressing is in place over the right knee. Her pain control seems to be adequate. She is alert. HEENT: Tympanic membranes are clear bilaterally. Oropharynx is pink and moist without any lesions. NECK: Supple, non-tender. Full range of motion. No jugular venous distention. CHEST: Lungs were clear to auscultation bilaterally without any rhonchi, wheezing or rales. HEART: Regular rate and rhythm without appreciable murmurs, gallops, or rubs. ABDOMEN: Soft, non-tender. Positive bowel sounds. EXTREMITIES: Right knee has a bulky dressing in place. Iceman is currently in position. Pulses distally were strong. Capillary refill is brisk. NEUROLOGIC: She is alert and oriented times three. LABORATORY: Postoperative H&H is pending. ASSESSMENT: 1. Immediate postoperative day 0 for elective total right knee arthroplasty performed by Dr. Carlos Sexton having failed to respond to outpatient treatment measures. 2. Chronic knee pain failing to respond to conservative measures in the outpatient setting requiring surgical intervention for symptom control. 3. Diabetes mellitus type 2, insulin dependent. 4. Hypertension. 5. History of gastroesophageal reflux disease. PLAN: The patient will be followed postoperatively as she continues with her physical therapy and rehabilitation efforts. Will continue with orthopedic management through Dr. Carlos Sexton and orthopedic services with Physical Therapy. Will resume her home medications as they are updated and verified an appropriate to her care. She will be on DVT prophylaxis per protocol and initiation of Xarelto at discharge per protocol. Will have her on insulin sliding scale per protocol. Will work on discharge planning starting tomorrow. Until she can transition to outpatient management will continue to monitor and treat as needed. [facility][id number] [facility]
[2018-12-19] MEDS: ENOXAPARIN SODIUM 30 MG/0.3 ML SYG SUBCU SCH (22:38)
[2018-12-20] MEDS ORDERED: CLINDAMYCIN IV 600MG 50 ML IVPB ONE (03:33)
[2018-12-20] MEDS: CLINDAMYCIN IV 600MG 600 MG in PREMIX BAG 1 BAG IVPB SCH (03:39)
[2018-12-20] MEDS: MORPHINE SULFATE INJ 10 MG/ML VIAL IV PRN ×2 (03:45→21:50)
[2018-12-20] MEDS: VANCOMYCIN HCL INJ 1,000 MG in SODIUM CHLORIDE 0.9% 250ML 250 ML IVPB SCH (06:00)
[2018-12-20] MEDS: INSULIN LISPRO 100 UNITS/ML PEN SUBCU SCH ×4 (07:56→21:00)
[2018-12-20] MEDS: CELECOXIB 100 MG CAP PO SCH ×2 (08:23→16:34)
[2018-12-20] MEDS: MAGNESIUM OXIDE 400 MG TAB PO SCH (08:24)
[2018-12-20] MEDS: LISINOPRIL 5 MG TAB PO SCH (08:24)
[2018-12-20] MEDS: PANTOPRAZOLE SODIUM TAB 40 MG PO SCH (08:24)
[2018-12-20] MEDS: ASPIRIN (CHEWABLE) 81 MG TAB PO SCH (08:24)
[2018-12-20] MEDS: BISACODYL TAB 5 MG TAB PO SCH (08:26)
[2018-12-20] MEDS: VENLAFAXINE XR 75 MG CAP PO SCH (08:26)
[2018-12-20] MEDS: GABAPENTIN 100 MG CAP PO SCH ×3 (08:27→20:37)
[2018-12-20] MEDS: SITagliptin 50 MG TAB PO SCH (08:27)
[2018-12-20] MEDS: DOCUSATE CALCIUM 240 MG CAP PO SCH ×2 (08:28→20:37)
[2018-12-20] MEDS ORDERED: CETIRIZINE HCL 10 MG TAB PO ONE (08:48)
[2018-12-20] MEDS: CETIRIZINE HCL 10 MG TAB PO SCH (08:51)
[2018-12-20] MEDS: ENOXAPARIN SODIUM 30 MG/0.3 ML SYG SUBCU SCH ×2 (12:01→23:09)
--- NOTE | 2018-12-20 17:36 | PN ---
DATE: 12/20/18 SUPERVISING PHYSICIAN: Kenyon Banerjee M.D. SUBJECTIVE: The patient is lying in bed. Her family is at her bedside. She is somewhat confused right now. Earlier her had a syncopal episode in her room and had to be sent to the Emergency Room, and she was quite distraught about that. At this point her daughter's only concerns were that she has been losing quite a bit of weight over the last few months, just because she has had a poor appetite and she has been self adjusting her long-acting insulin. She is also on Januvia and she asked that we would either cautiously restart that or to make sure she had a followup with Dr. Farr to adjust her insulin. I explained that I had not restarted it at this time and she was only getting sliding scale insulin based on her blood sugars and that we would reevaluate it in the next day or two. OBJECTIVE: VITAL SIGNS: Temperature 98, heart rate 84, blood pressure 124/69, respiratory rate 16, O2 sat 92% on room air. RESPIRATORY: Essentially clear to auscultation bilaterally. CARDIAC: Regular rate and rhythm. GASTROINTESTINAL: Abdomen is soft, nondistended, non-tender. Bowel sounds are positive. EXTREMITIES: The dressing to her right knee has an Kj bandage on it. It is dry and intact. Bilateral pedal pulses are +2. NEUROLOGIC: She is awake and slightly lethargic. LABORATORY: H&H is 10.4 and 31.5. All other labs and films have been reviewed via the EMR. ASSESSMENT: 1. Right knee pain status post right total knee arthroplasty performed by Dr. Carlos Sexton, orthopedic surgeon after having failed to respond to outpatient treatment measures. Postoperative day #1. 2. Diabetes mellitus type 2.. 3. Hypertension, stable on medications. 4. History of gastroesophageal reflux disease. PLAN: We will continue present supportive care. Her physical therapy will continue for strengthening and conditioning. Orthopedic issues are per Dr. Carlos Sexton, orthopedic surgeon. I have not restarted her long-acting insulin and I have actually spoken to her primary care physician, Dr. Anette Farr, about adjusting those and for a followup appointment. Will continue her blood sugar management with her sliding scale NovoLog insulin. Will continue to monitor her closely and follow as needed. [facility][id number] [facility]
[2018-12-20] MEDS: DORZOLAMIDE 2% OPHTH SCH (20:31)
[2018-12-20] MEDS: ACETAMINOPHEN W/COD #3 TAB 1 EA TAB PO PRN (20:31)
[2018-12-20] MEDS: FENOFIBRIC ACID 135 MG CAP PO SCH (20:37)
[2018-12-20] MEDS: ATORVASTATIN 20 MG TAB PO SCH (20:37)
[2018-12-20] MEDS: LATANOPROST BOTH_EYES SCH (20:38)
[2018-12-20] MEDS: INSULIN GLARGINE SUBCU SCH (21:00)
[2018-12-20] MEDS: [UNRECOGNIZED DRUG - OTHER] SUBCU SCH (21:00)
[2018-12-21] MEDS: ACETAMINOPHEN W/COD #3 TAB 1 EA TAB PO PRN ×2 (02:39→08:15)
[2018-12-21] MEDS: PANTOPRAZOLE SODIUM TAB 40 MG PO SCH (08:12)
[2018-12-21] MEDS: SITagliptin 50 MG TAB PO SCH (08:12)
[2018-12-21] MEDS: CETIRIZINE HCL 10 MG TAB PO SCH (08:12)
[2018-12-21] MEDS: MAGNESIUM OXIDE 400 MG TAB PO SCH (08:13)
[2018-12-21] MEDS: LISINOPRIL 5 MG TAB PO SCH (08:13)
[2018-12-21] MEDS: CELECOXIB 100 MG CAP PO SCH ×2 (08:13→17:19)
[2018-12-21] MEDS: ASPIRIN (CHEWABLE) 81 MG TAB PO SCH (08:13)
[2018-12-21] MEDS: GABAPENTIN 100 MG CAP PO SCH ×3 (08:14→21:20)
[2018-12-21] MEDS: VENLAFAXINE XR 75 MG CAP PO SCH (08:14)
[2018-12-21] MEDS: DOCUSATE CALCIUM 240 MG CAP PO SCH ×2 (08:14→21:20)
--- NOTE | 2018-12-21 08:15 | PN ---
DATE: 12/19/18 POSTOPERATIVE CHECK SUBJECTIVE: Ms. Sahu is doing well and she has no pain. OBJECTIVE: Afebrile. Vital signs stable. Dressing is clean, dry and intact. ASSESSMENT: Status post total knee arthroplasty. PLAN: She will begin weightbearing as tolerated on postoperative day 1. [facility][id number] [facility]
--- NOTE | 2018-12-21 08:16 | PN ---
DATE: 12/20/18 SUBJECTIVE: Ms. Sahu is doing well. She has been up to a chair and she has no significant pain. OBJECTIVE: Afebrile. Vital signs stable. Dressing is clean. There are no signs or symptoms of infection. ASSESSMENT: Status post total knee arthroplasty. PLAN: She will begin weightbearing as tolerated. [facility][id number] [facility]
--- NOTE | 2018-12-21 08:17 | PN ---
DATE: 12/21/18 SUBJECTIVE: Ms. Sahu is up to a chair. Pain is well controlled. OBJECTIVE: Afebrile. Vital signs stable. Wound is clean. There are no signs or symptoms of infection. ASSESSMENT: Status post total knee arthroplasty. PLAN: The plan at this point is for her to continue on with her weightbearing status. We will continue to increase CPM as tolerated. [facility][id number] [facility]
[2018-12-21] MEDS: INSULIN LISPRO 100 UNITS/ML PEN SUBCU SCH ×4 (08:19→21:24)
[2018-12-21] MEDS: BISACODYL TAB 5 MG TAB PO SCH (08:20)
--- NOTE | 2018-12-21 11:43 | OP ---
DATE OF PROCEDURE: 12/19/18 PREOPERATIVE DIAGNOSIS: 1. Osteoarthritis. POSTOPERATIVE DIAGNOSIS: 1. Osteoarthritis. PROCEDURE: 1. Total knee arthroplasty. SURGEON: Carlos Sexton MD. MULTISKILL OPERATOR: Fernando Saldana CST, SA-C. ANESTHESIA: General anesthesia. COMPLICATIONS: None. FINDINGS: Severe arthritis. INDICATION: Ms. Sahu has a history of severe knee pain for which she has had contralateral total knee arthroplasty. She has requested total knee arthroplasty on the right secondary to failure of conservative measures. After discussing the risks, benefits and alternatives to that, the patient has given informed consent for total knee arthroplasty. PROCEDURE: The patient was brought to the Operating Room and placed in supine position. General anesthesia was induced and the patient's leg was sterilely prepped and draped. Following prepping and draping, the distal femur was exposed and using an intramedullary guide, the distal femoral cut was made. The appropriate sized cutting block was measured, pinned into place, and the anterior, posterior, and chamfer cuts were made. The ACL was transected and the tibia was subluxed. Both the medial and lateral menisci were removed. An intramedullary guide was used to make the proximal tibial cut. The appropriate sized base plate was placed and a trial polyethylene was placed. The trial femur was placed, the knee was reduced, and the knee was taken through a range of motion. The knee was stable in anterior, posterior, varus and valgus stress. The patella tracked anatomically without evidence of subluxation or dislocation. After trialing, the trial components were removed and the bony surfaces were thoroughly irrigated with saline. Following irrigation, the surfaces were dried and the final components were cemented into place. The excess cement was removed and the remaining cement was allowed to cure. The knee was again taken through a range of motion to confirm stability. The wound was then irrigated with saline and closure was performed using PDS to approximate the arthrotomy followed by closure of the subcutaneous tissues with a combination of running and interrupted Monocryl sutures. Sterile dressing was placed. The patient was awoken from anesthesia and taken to Recovery. POSTOPERATIVE PLAN: The patient will be weight-bearing as tolerated on postoperative day 1. COMPONENTS: Linki Triathlon knee, size 2 femur, size 2 tibia, 9 mm insert. #[id number] [facility]
[2018-12-21] MEDS: MORPHINE SULFATE INJ 10 MG/ML VIAL IM PRN (11:50)
[2018-12-21] MEDS: SODIUM CHLORIDE 0.9% (FLUSH) 10 ML SYG IV SCH ×2 (12:37→21:30)
[2018-12-21] MEDS: ENOXAPARIN SODIUM 30 MG/0.3 ML SYG SUBCU SCH ×2 (12:39→22:14)
[2018-12-21] MEDS: CODEINE PO PRN ×2 (14:44→20:43)
[2018-12-21] MEDS: [UNRECOGNIZED DRUG - OTHER] PO PRN ×2 (14:44→20:43)
[2018-12-21] MEDS: ACETAMINOPHEN PO PRN ×2 (14:44→20:43)
--- NOTE | 2018-12-21 20:10 | PN ---
DATE: 12/21/18 SUPERVISING PHYSICIAN: Kenyon Banerjee M.D. SUBJECTIVE: The patient has been walking around in the hallways with Physical Therapy. The patient is returned to her bed at this time. She is much more alert today. Her daughter is at the bedside. She has no complaints of nausea, vomiting, diarrhea, chest pain or shortness of breath. OBJECTIVE: VITAL SIGNS: Temperature 98.6, heart rate 87, blood pressure 134/81, respiratory rate 16, O2 sat 97% on room air. RESPIRATORY: Essentially clear to auscultation bilaterally. CARDIAC: Regular rate and rhythm. GASTROINTESTINAL: Abdomen is soft, nondistended, non-tender. Bowel sounds are positive. NEUROLOGIC: She is awake, alert and oriented times three. LABORATORY: Blood sugars have run between 120 and 198. All other labs and films have been reviewed via the EMR. ASSESSMENT: 1. Right knee pain status post right total knee arthroplasty performed by Dr. Carlos Sexton, orthopedic surgeon after having failed to respond to outpatient treatment measures. Postoperative day #2. 2. Diabetes mellitus type 2.. 3. Hypertension, stable on medications. 4. History of gastroesophageal reflux disease. PLAN: We will continue present supportive care. She will continue with physical therapy for strengthening and conditioning. Orthopedic issues will be per Dr. Carlos Sexton, orthopedic surgeon. Again, I have not restarted her long- acting insulin. At this point her blood sugars are staying below [address] Anette Farr adjust her diabetic medications as needed as an outpatient. At this point she is planning to be discharged on Tuesday with [facility] Physical Therapy Department. Otherwise we will continue monitor closely and follow as needed. [facility][id number] [facility]
[2018-12-21] MEDS: FENOFIBRIC ACID 135 MG CAP PO SCH (21:20)
[2018-12-21] MEDS: ATORVASTATIN 20 MG TAB PO SCH (21:20)
[2018-12-21] MEDS: LATANOPROST BOTH_EYES SCH (21:21)
[2018-12-21] MEDS: INSULIN GLARGINE SUBCU SCH ×2 (21:23→21:30)
[2018-12-21] MEDS: [UNRECOGNIZED DRUG - OTHER] SUBCU SCH ×2 (21:23→21:30)
[2018-12-21] MEDS: DORZOLAMIDE 2% OPHTH SCH (21:33)
[2018-12-22] MEDS: [UNRECOGNIZED DRUG - OTHER] PO PRN ×3 (06:38→20:02)
[2018-12-22] MEDS: CODEINE PO PRN ×3 (06:38→20:02)
[2018-12-22] MEDS: ACETAMINOPHEN PO PRN ×3 (06:38→20:02)
[2018-12-22] MEDS: GABAPENTIN 100 MG CAP PO SCH ×3 (08:31→20:10)
[2018-12-22] MEDS: MAGNESIUM OXIDE 400 MG TAB PO SCH (08:31)
[2018-12-22] MEDS: CETIRIZINE HCL 10 MG TAB PO SCH (08:31)
[2018-12-22] MEDS: CELECOXIB 100 MG CAP PO SCH ×2 (08:31→17:09)
[2018-12-22] MEDS: SITagliptin 50 MG TAB PO SCH (08:31)
[2018-12-22] MEDS: ASPIRIN (CHEWABLE) 81 MG TAB PO SCH (08:31)
[2018-12-22] MEDS: DOCUSATE CALCIUM 240 MG CAP PO SCH ×2 (08:31→20:10)
[2018-12-22] MEDS: INSULIN LISPRO 100 UNITS/ML PEN SUBCU SCH ×4 (08:34→21:20)
[2018-12-22] MEDS: SODIUM CHLORIDE 0.9% (FLUSH) 10 ML SYG IV SCH ×2 (08:42→20:13)
--- NOTE | 2018-12-22 08:46 | PN ---
DATE: 12/22/18 SUBJECTIVE: Ms. Sahu is doing well today. She actually got up out of bed by herself without her walker. OBJECTIVE: Afebrile. Vital signs stable. Wound is clean. There are no signs or symptoms of infection. ASSESSMENT: Status post total knee arthroplasty. PLAN: The plan at this point is for her to continue with her weightbearing status. We will likely discharge her tomorrow. #[id number] [facility]
[2018-12-22] MEDS: PANTOPRAZOLE SODIUM TAB 40 MG PO SCH (09:02)
[2018-12-22] MEDS: VENLAFAXINE XR 75 MG CAP PO SCH (09:02)
[2018-12-22] MEDS: LISINOPRIL 5 MG TAB PO SCH (09:03)
[2018-12-22] MEDS: BISACODYL TAB 5 MG TAB PO SCH (09:03)
[2018-12-22] MEDS: ENOXAPARIN SODIUM 30 MG/0.3 ML SYG SUBCU SCH ×2 (10:09→23:04)
[2018-12-22] MEDS: IV SET AND CAP CHANGE INJ INJ SCH (10:09)
--- NOTE | 2018-12-22 17:06 | PN ---
DATE: 12/22/18 SUPERVISING PHYSICIAN: Kenyon Banerjee M.D. SUBJECTIVE: The patient is sitting up in her chair. She is talking with her daughter and . She is feeling much improved and feels like her therapy is going well. She denies any nausea, vomiting, diarrhea, constipation, chest pain or shortness of breath. OBJECTIVE: Temperature 97.9, heart rate 89, blood pressure 105/65, respiratory rate 16, O2 sat 100% on room air. RESPIRATORY: Essentially clear to auscultation bilaterally. CARDIAC: Regular rate and rhythm. GASTROINTESTINAL: Abdomen is soft, nondistended, non-tender. Bowel sounds are positive. EXTREMITIES: She has a dressing to her right knee that is dry and intact. Bilateral pedal pulses are palpable at +2. NEUROLOGIC: She is awake, alert and oriented times three. LABORATORY: There are no labs or films to report at this time. ASSESSMENT: 1. Right knee pain status post right total knee arthroplasty performed by Dr. Carlos Sexton, orthopedic surgeon after having failed to respond to outpatient treatment measures. Postoperative day #3. 2. Diabetes mellitus type 2. 3. Hypertension, stable on medications. 4. History of gastroesophageal reflux disease. PLAN: We will continue present supportive care. She will continue with physical therapy for strengthening and conditioning. Orthopedic issues will be per Dr. Carlos Sexton, orthopedic surgeon. Her long-acting insulin has been discontinued at this time. Her blood sugars have been mostly staying below 200 and she will need a followup with Dr. Anette Farr, her primary care physician, to adjust her diabetic medications. At this point she is planning to be discharge on Tuesday. She will continue with outpatient physical therapy at [facility]. We will continue to monitor closely and follow as needed. #[id number] [facility]
[2018-12-22] MEDS: FENOFIBRIC ACID 135 MG CAP PO SCH (20:10)
[2018-12-22] MEDS: LATANOPROST BOTH_EYES SCH (20:10)
[2018-12-22] MEDS: DORZOLAMIDE 2% OPHTH SCH (20:10)
[2018-12-22] MEDS: ATORVASTATIN 20 MG TAB PO SCH (20:10)
[2018-12-22] MEDS: INSULIN GLARGINE SUBCU SCH (20:12)
[2018-12-22] MEDS: [UNRECOGNIZED DRUG - OTHER] SUBCU SCH (20:12)
[2018-12-22] MEDS ORDERED: MAGNESIUM HYDROXIDE 30 ML UD PO ONE (21:00)
[2018-12-22] MEDS ORDERED: BISACODYL SUPPOSITORY 10 MG PR ONE (21:00)
[2018-12-23] MEDS: INSULIN LISPRO 100 UNITS/ML PEN SUBCU SCH (07:23)
[2018-12-23] MEDS: CELECOXIB 100 MG CAP PO SCH (07:30)
[2018-12-23] MEDS: CETIRIZINE HCL 10 MG TAB PO SCH (08:19)
[2018-12-23] MEDS: LISINOPRIL 5 MG TAB PO SCH (08:19)
[2018-12-23] MEDS: SODIUM CHLORIDE 0.9% (FLUSH) 10 ML SYG IV SCH (08:19)
[2018-12-23] MEDS: MAGNESIUM OXIDE 400 MG TAB PO SCH (08:20)
[2018-12-23] MEDS: BISACODYL TAB 5 MG TAB PO SCH (08:20)
[2018-12-23] MEDS: VENLAFAXINE XR 75 MG CAP PO SCH (08:20)
[2018-12-23] MEDS: PANTOPRAZOLE SODIUM TAB 40 MG PO SCH (08:21)
[2018-12-23] MEDS: GABAPENTIN 100 MG CAP PO SCH (08:21)
[2018-12-23] MEDS: SITagliptin 50 MG TAB PO SCH (08:21)
[2018-12-23] MEDS: ASPIRIN (CHEWABLE) 81 MG TAB PO SCH (08:22)
[2018-12-23] MEDS: DOCUSATE CALCIUM 240 MG CAP PO SCH (08:23)
[2018-12-23] MEDS: ENOXAPARIN SODIUM 30 MG/0.3 ML SYG SUBCU SCH (10:41)
[2018-12-23 10:48] VITALS: BP 132/68; TEMP 97.9; O2SAT 100
--- NOTE | 2018-12-25 08:33 | DS ---
SUPERVISING PHYSICIAN: Kenyon Banerjee MD DISCHARGE DIAGNOSIS: 1. Right knee pain status post right total knee arthroplasty performed by Dr. Carlos Sexton, orthopedic surgeon, after having failed to respond to outpatient treatment measures. Postoperative day #4. 2. Diabetes mellitus, type 2. 3. Hypertension, stable on medications. 4. History of gastroesophageal reflux disease. HISTORY OF PRESENT ILLNESS: This is a 78-year-old female patient who was admitted to the hospital on the day of admission for surgery on her right knee. She has a longstanding history of pain in her right knee. She has had her left knee replaced in the last couple of years which did fairly well. She noted that the pain had become diffuse without any radiation or other neurological symptoms. She had failed to respond to any outpatient measures, including pain relief with injections and physical therapy, therefore she requested surgical intervention for symptom control. She had elective total right knee arthroplasty performed by Dr. Carlos Sexton. There were no complications intraoperatively. She was seen in consultation in the postoperative state. HOSPITAL COURSE: The patient began her physical therapy the first day after surgery. She had some difficulty with her initial day. She was somewhat lethargic and received her normal dose of benzodiazepine. She was fairly lethargic and had a difficult time continuing her physical therapy, but on postoperative day #2, she did very well with her physical therapy. We adjusted her benzodiazepine to a half dose and all her home medications were restarted except her long acting insulin. She has lost weight over the last few months and has been self adjusting her long acting insulin for months. She completed her physical therapy and at this point, she is to be discharged home in stable condition. LABORATORY: Postoperatively, hemoglobin was 10.4. DISCHARGE PLAN: The patient will be discharged home in stable condition. She is to resume her previous diet. Activity will be per physical therapy and she will [facility]. In addition to her home medications, she is to have 8 days of Xarelto. She will take Tylenol #4 from her home medications. I did discontinue her long acting insulin. So at this point she is on short acting insulin and Januvia. She is to followup with Dr. Sexton in the next one to two weeks and she has an appointment with Dr. Farr on 01/03/15 at 2:30 PM. She is to return to the hospital or call Dr. Farr's or Dr. Sexton's office for any problems or complications. DISCHARGE MEDICATIONS: 1. Multivitamins. 2. Baby aspirin. 3. Venlafaxine. 4. Clonazepam. 5. Pantoprazole. 6. TriCor. 7. Bisoprolol. 8. Lisinopril. 9. Januvia. 10. Humalog insulin. 11. Neurontin. 12. Trusopt ophthalmic drops. 13. Coenzyme Q10. 14. Cinnamon. 15. Laxative. 16. Acetaminophen with codeine. 17. B-complex with folic acid. 18. Glucosamine. 19. Angela-C. 20. Tumeric. 21. Atorvastatin. 22. Docusate sodium. 23. FiberCon tabs. 24. Latanoprost 0.005% solution ophthalmic. 25. Xarelto. [facility][id number] [facility]
== END 2018-12-23 12:00 | disposition home or self-care (01) | DRG 470 ==
LOC: AMB 05:31 → MS 10:45
PROVIDERS: ADMIT Orthopaedic Surgery; ATTEND Nurse Practitioner Acute Care
PROC: 0SRC0J9 Replacement of Right Knee Joint with Synthetic Substitute, Cemented, Open Approach (ICD-10-PCS; 2018-12-19)
PROC: 3E0T3BZ Introduction of Anesthetic Agent into Peripheral Nerves and Plexi, Percutaneous Approach (ICD-10-PCS; principal; 2018-12-19 07:07)
DX: M17.11 Unilateral primary osteoarthritis, right knee (principal); G89.29 Other chronic pain; I10 Essential (primary) hypertension; I25.10 Atherosclerotic heart disease of native coronary artery without angina pectoris; E11.51 Type 2 diabetes mellitus with diabetic peripheral angiopathy without gangrene; K21.9 Gastro-esophageal reflux disease without esophagitis; I35.1 Nonrheumatic aortic (valve) insufficiency; I65.29 Occlusion and stenosis of unspecified carotid artery; E66.9 Obesity, unspecified; Z96.652 Presence of left artificial knee joint; Z88.1 Allergy status to other antibiotic agents; Z88.6 Allergy status to analgesic agent; Z88.8 Allergy status to other drugs, medicaments and biological substances; Z79.4 Long term (current) use of insulin; Z79.891 Long term (current) use of opiate analgesic; Z79.899 Other long term (current) drug therapy; Z68.28 Body mass index [BMI] 28.0-28.9, adult

== ENCOUNTER 2019-03-02 05:42 | Day surgery (SDC) | payer OTHER ==
[2019-03-02] MEDS ORDERED: LACTATED RINGERS 1,000 ML ONE ×2 (06:14→06:45)
[2019-03-02] MEDS ORDERED: LIDOCAINE 1% 10 ML VIAL INJ ONE (07:00)
[2019-03-02] MEDS ORDERED: PROPOFOL 200 MG/20 ML VIAL IV ONE (07:00)
[2019-03-02] MEDS ORDERED: HYDROmorphone HCL INJ 2 MG/ML VIAL ONE (09:25)
[2019-03-02] MEDS ORDERED: HYDROcodone 5MG/APAP 325MG 1 EA TAB ONE (10:23)
[2019-03-02 10:47] VITALS: BP 138/67; TEMP 97.4; O2SAT 100
--- NOTE | 2019-03-02 11:29 | OP ---
DATE OF PROCEDURE: 03/02/19 PREOPERATIVE DIAGNOSIS: 1. Arthrofibrosis. POSTOPERATIVE DIAGNOSIS: 1. Arthrofibrosis. PROCEDURE: 1. Closed manipulation. SURGEON: Carlos Sexton MD. DOCUMENT CONTROLLER: Fernando Saldana CST, SA-C. ANESTHESIA: Conscious sedation. COMPLICATIONS: None. FINDINGS: Preoperative range of motion to about 105 degrees. Postoperative range of motion to about 120 degrees. INDICATION: Ms. Sahu has a history of total knee arthroplasty and her daughter confirms that she was not being very compliant with her physical therapy. Because of that, she has developed some stiffness. We talked about risks, benefits and alternatives to closed manipulation and she gave informed consent for that. PROCEDURE: The patient was brought to the Operating Room and placed in supine position. Sedation was administered and the knee was hyperflexed. Following hyperflexion, the knee was examined under fluoroscopic imaging and there did not appear to be any acute abnormalities. The patient was then awoken from anesthesia and taken to Recovery. POSTOPERATIVE PLAN: She will be doing aggressive range of motion exercises both at home and with physical therapy. She will followup with us in approximately 2 weeks. #[id number] [facility]
--- NOTE | 2019-03-05 07:43 | RAD ---
EXAM DESCRIPTION: Fluoroscopy Up to 1Hr CLINICAL HISTORY: 78 years Female, KENA RIGHT KNEE COMPARISON: Right knee radiograph December 19, 2018 FINDINGS: Total fluoroscopy time one second, one fluoroscopic image Single fluoroscopic view of the knee was obtained. The image is not labeled regarding left/right orientation, presumably the right knee was imaged. There has been previous arthroplasty. The tibial component is only partially visualized, but no hardware complication is identified. IMPRESSION: Limited exam without apparent hardware complication. Electronically signed by: Terry Broderick MD 03/05/2019 7:41 AM CDT
== END 2019-03-02 10:50 | disposition home or self-care (01) ==
LOC: AMB 05:42
PROVIDERS: ATTEND Orthopaedic Surgery
DX: M24.661 Ankylosis, right knee (principal); Z88.8 Allergy status to other drugs, medicaments and biological substances; Z96.651 Presence of right artificial knee joint; Z90.710 Acquired absence of both cervix and uterus
CPT/HCPCS: 01380; 27570; 36416; 76000; 80307; 82948; 87070; J1170; J3490; J7120

== ENCOUNTER → 2019-11-07 | Outpatient (CLI) | payer OTHER | LOC: GMAM 10:14 | PROVIDERS: ATTEND Family Medicine | DX: R53.83 Other fatigue (principal); E11.9 Type 2 diabetes mellitus without complications; E83.52 Hypercalcemia; I10 Essential (primary) hypertension ==

== ENCOUNTER → 2019-11-08 | Outpatient (CLI) | payer OTHER ==
--- NOTE | 2019-11-08 13:31 | MRI ---
Study: MRI of the Cervical Spine. Indication: CERVICALGIA Technique: Multiplanar, multi sequence MRI of the cervical spine was obtained without intravenous contrast. Comparison: None. Findings: Vertebral body height maintained. No marrow infiltrating lesion. Spinal cord normal in caliber and signal. Straightening cervical spine. C2-C3: Moderate left and mild right facet arthrosis. No stenosis. C3-C4: Mild to moderate disc space height loss and disc desiccation. Trace anterolisthesis. 3 mm disc uncovering. Mild spinal canal narrowing. Severe left facet arthrosis and tiny joint effusion. Reactive marrow edema as well as surrounding inflammation about the joint. Mild right facet arthrosis. Moderate left and mild right uncovertebral hypertrophy. Moderate to severe left neural foraminal narrowing. The left vertebral artery extends into the lateral margin of the left neural foramen. No right neural foraminal narrowing. C4-C5: Moderate disc space height loss and disc desiccation. Trace anterolisthesis. 3 mm bulge and mild spinal canal narrowing. Moderate right and mild left facet arthrosis. Mild bilateral uncovertebral hypertrophy. Moderate to severe right and mild left neural foraminal narrowing. C5-C6: Moderate to severe disc space height loss and disc desiccation. 3.5 mm disc bulge. Mild to moderate spinal canal narrowing. Moderate bilateral uncovertebral hypertrophy with moderate to severe right and moderate left neural foraminal narrowing. C6-C7: Moderate disc space height loss and disc desiccation. 3 mm disc bulge. Mild spinal canal narrowing. Mild bilateral uncovertebral hypertrophy. Mild to moderate right and mild left neural foraminal narrowing. C7-T1: Mild disc space height loss and disc desiccation. Trace anterolisthesis. Moderate bilateral facet arthrosis. No stenosis. Right-sided sternoclavicular joint osteoarthritis noted. Impression: Multilevel cervical disc disease, most pronounced at C5-C6 where there is mild to moderate spinal canal narrowing as well as moderate to severe right and moderate left neural foraminal narrowing. Additional findings as above. Electronically signed by: Russell Jennings MD 11/08/2019 1:30 PM [facility]
== END ==
LOC: MRI 08:54
PROVIDERS: ATTEND Family Medicine
DX: M50.31 Other cervical disc degeneration, high cervical region (principal); M50.321 Other cervical disc degeneration at C4-C5 level; M50.322 Other cervical disc degeneration at C5-C6 level; M50.323 Other cervical disc degeneration at C6-C7 level; M48.02 Spinal stenosis, cervical region

== ENCOUNTER → 2019-12-18 | Outpatient (CLI) | payer OTHER ==
--- NOTE | 2019-12-20 15:11 | MAM ---
EXAM DESCRIPTION: 3D Screening BILATERAL : Digital Mammography. CLINICAL HISTORY: 79 years Female ANNUAL SCREENING . No complaints. No personal or family history of breast cancer. Menarche age 11. Childbirth age 16. Hysterectomy age 27. HRT 5 or more years ago. Lifetime risk of developing breast cancer (Tyrer-Cuzick model)(%): 3.1. COMPARISON: 2-D digital screening bilateral mammography January 2016. No prior reports available. TECHNIQUE: Bilateral CC and MLO projection full-field images, digital tomosynthesis mammographic technique. Bilateral digital 2-D full-field MLO images. CAD available for 2-D images. FINDINGS: The breast parenchymal density pattern is: Scattered areas of fibroglandular density. No skin thickening or nipple retraction. Vascular calcifications. Solitary microcalcifications. Groups of microcalcifications in the anterior half of the right breast. 2 tight groups of microcalcifications posterior left breast. Mass density retroareolar and slightly lateral to the posterior nipple line left breast. Architectural distortion lateral to the right nipple 2 cm is also present on the prior study. Groups of microcalcifications are more well-defined in the anterior right breast compared to the prior study. IMPRESSION: BI-RADS CATEGORY: 0 - INCOMPLETE- Need additional imaging evaluation. FOLLOW-UP: Recall for additional imaging: Bilateral full-field 2-D and tomosynthesis in the LM projection. Orthogonal spot magnification around the posterior nipple line of the right breast. Bilateral directed breast ultrasound regions of interest.. Written communication concerning the IMPRESSION and Follow-up, will be mailed to the patient and referring health care provider. Electronically signed by: Fernando Casarez MD 12/20/2019 3:10 PM [facility]
== END ==
LOC: GMAM 14:00
PROVIDERS: ATTEND Family Medicine
DX: Z12.31 Encounter for screening mammogram for malignant neoplasm of breast (principal); E22.1 Hyperprolactinemia; R31.29 Other microscopic hematuria

== ENCOUNTER → 2020-01-07 | Outpatient (CLI) | payer OTHER | DX: N60.42 Mammary duct ectasia of left breast (principal); R92.0 Mammographic microcalcification found on diagnostic imaging of breast | CPT/HCPCS: 76641; 77066; G0279 ==

== ENCOUNTER → 2020-03-13 | Outpatient (CLI) | payer OTHER | LOC: GMAM 11:09 | PROVIDERS: ATTEND Family Medicine | DX: E55.9 Vitamin D deficiency, unspecified (principal); E83.52 Hypercalcemia ==

== ENCOUNTER 2020-05-11 19:27 | Emergency (ER) | payer OTHER ==
[2020-05-11] MEDS ORDERED: levoFLOXacin 500MG IV 500 MG in PREMIX BAG 1 BAG IVPB ONE (20:15)
[2020-05-11] MEDS ORDERED: SODIUM CHLORIDE 0.9% 1000ML 1,000 ML IVS ONE (20:16)
--- NOTE | 2020-05-11 20:17 | ED.PDOC ---
History of Present Illness - General Chief Complaint: Problem Stated Complaint: dysuria Time Seen by Provider: 05/11/20 20:10 Source: patient Exam Limitations: no limitations - History of Present Illness Initial Comments: Pt reports urinary frequency and discomfort for past 2 days. She denies F/C. She reports bilateral flank pain and lower abdominal pain. Nl bowels, no N/V. Pt says minimal cough (chronic), but no SOB, sore throat, congestion. Daughter also says she's been somewhat confused from time to time. 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 Timing/Duration: other - Since Tuesday (2 days ago) Quality: moderate Onset Location: RLQ, suprapubic Radiation: right flank, left flank Activites at Onset: none Prior abdominal problems: none Improving Factors: nothing Worsening Factors: nothing Associated Symptoms: abdominal pain, dysuria, urinary frequency Allergies/Adverse Reactions: Allergies Cephalosporins Allergy (Verified 12/15/18 12:44) Ketorolac Tromethamine [From Toradol] Allergy (Verified 12/15/18 12:44) Metformin Allergy (Verified 12/15/18 12:44) Tramadol [From Ultram] Allergy (Verified 12/15/18 12:44) Cyclobenzaprine [From Flexeril] Adverse Reaction (Verified 12/15/18 12:44) Home Medications: Ambulatory Orders RX: Aspirin [Baby Aspirin] 81 mg PO QD 04/06/15 RX: Bisoprolol Fumarate 5 mg PO DAILY 04/06/15 RX: Clonazepam 0.5 mg PO BEDTIME 04/06/15 RX: Fenofibrate [Tricor] 145 mg PO BEDTIME 04/06/15 RX: Lisinopril 2.5 mg PO DAILY 04/06/15 RX: Multiple Vitamins W/ Minerals [Centrum Silver] 1 tab PO DAILY 04/06/15 RX: Pantoprazole Tablet [Protonix] 40 mg PO DAILY 04/06/15 RX: Venlafaxine Xr [Effexor Xr] 150 mg PO DAILY 04/06/15 RX: Acetaminophen W/ Codeine [Tylenol W/ CODEINE #3] 1 ea PO Q6HR PRN 06/30/18 RX: Bisacodyl [Laxative] 10 mg PO DAILY 06/30/18 RX: Cinnamon 1,000 mg PO DAILY 06/30/18 RX: Coenzyme Q10 (Ubidecarenone) [Coq-10] 100 mg PO DAILY 06/30/18 RX: Dorzolamide 2% Ophth [Trusopt Opthalmic Drops] 1 ml OPHTH BEDTIME 06/30/18 RX: Gabapentin [Neurontin] 200 mg PO TID 06/30/18 RX: Insulin Lispro [Humalog] 100 unit SC PRN 06/30/18 RX: Sitagliptin Phosphate [Januvia] 100 mg PO DAILY 06/30/18 Fiber Con Tabs 2 tablet PO BID 12/15/18 RX: Atorvastatin Calcium 40 mg PO BEDTIME 12/15/18 RX: B-Complex W/ Folic Acid [Super B Complex Maxi] 1 tab PO BEDTIME 12/15/18 RX: Bioflavonoid Products [Angela-C] 1 tab PO DAILY 12/15/18 RX: Docusate Sodium 250 mg PO DAILY 12/15/18 RX: Glucosamine Sulfate [Glucosamine] 2,000 mg PO DAILY 12/15/18 RX: Latanoprost 1 drop BOTH_EYES BEDTIME 12/15/18 RX: Turmeric (Curcuma Longa) [Turmeric] 500 mg PO DAILY 12/15/18 RX: Acetaminophen W/ Codeine [Acetaminophen/Codeine Braulio 300-60 mg] 1 tablet PO Q4H PRN 12/21/18 Rivaroxaban [Xarelto] 10 mg PO DAILY #8 tab 12/23/18 levoFLOXacin [Levaquin] 500 mg PO DAILY 7 Days #14 tab 05/11/20 Review of Systems - Review of Systems Constitutional: States: weakness. Denies: chills, fever EENTM: States: no symptoms reported Respiratory: States: see HPI, cough - minimal, chronic\. Denies: orthopnea, short of breath, stridor Cardiology: States: no symptoms reported Genitourinary: States: see HPI, dysuria, frequency Musculoskeletal: States: see HPI, back pain Skin: States: no symptoms reported Neurological: States: no symptoms reported, other - confusion Endocrine: States: no symptoms reported Hematologic/Lymphatic: States: no symptoms reported Past Medical History (General) - Patient Medical History Hx Seizures: No Hx Stroke: No Hx Asthma: No Hx of COPD: No Hx Cardiac Disorders: Yes - arrhythmia Hx Congestive Heart Failure: No Hx Pacemaker: No Hx Hypertension: No Hx Diabetes: Yes Hx Gastroesophageal Reflux: Yes Hx Cancer: Yes - skin Hx Hepatitis C: No Hx MRSA: No MRSA Source:: Wound - Vaccination History Hx Influenza Vaccination: No Hx Pneumococcal Vaccination: No - Social History Hx Tobacco Use: No Hx Alcohol Use: No Hx Substance Use: No Hx Physical Abuse: No Hx Emotional Abuse: No - Female History Patient : No Family Medical History - Family History Mother Family History: Unknown Living Status: Cause of : lung CA Physical Exam - Physical Exam General Appearance: Alert, Comfortable, No apparent distress Eyes, Ears, Nose, Throat Exam: PERRL/EOMI, normal ENT inspection, pharynx normal Neck: non-tender, full range of motion, supple, normal inspection Cardiovascular/Respiratory: regular rate, rhythm, no M/R/G, normal peripheral pulses, no JVD, normal breath sounds, no respiratory distress Gastrointestinal/Abdominal: normal bowel sounds, soft, tenderness - tender RLQ and suprapubic; no guarding or rebound. Back Exam: normal inspection, no CVA tenderness Extremity: non-tender, no pedal edema Neurologic: alert, normal mood/affect Skin Exam: normal color, warm/dry Progress - Progress Progress: 05/11/20 21:04 EKG Sinus tach 103. Nl ST segments, nl intervals, nl axis. No q waves. 05/11/20 23:18 05/11/20 20:11 EKG Assessment ONCE 05/11/20 20:12 Hold Metformin x 48Hrs [id number] 05/11/20 20:15 EKG STAT 05/11/20 20:35 URINE CULTURE W/COLONY COUNT Stat 05/11/20 20:44 BLOOD CULTURE Stat Laboratory Results - last 24 hr 05/11/20 05/11/20 05/11/20 20:35 20:44 20:44 WBC 12.1 H RBC 3.86 L Hgb 12.5 Hct 36.1 MCV 93.5 MCH 32.3 H MCHC 34.5 RDW 13.5 Plt Count 203 MPV 8.8 Absolute Neuts (auto) 10.20 H Absolute Lymphs (auto) 0.80 L Absolute Monos (auto) 1.10 H Absolute Eos (auto) 0.00 Absolute Basos (auto) 0.00 Neutrophils % 84.3 H Lymphocytes % 6.3 L Monocytes % 9.0 Eosinophils % 0.2 L Basophils % 0.2 Sodium 134 L Potassium 3.7 Chloride 99 L Carbon Dioxide 21 Anion Gap 17.7 BUN 33 H Creatinine 0.99 BUN/Creatinine Ratio 33.3 H Random Glucose 182 H Serum Osmolality 280.1 Lactic Acid Calcium 9.9 Total Bilirubin 0.9 AST 25 ALT 14 Alkaline Phosphatase 42 Troponin I Serum Total Protein 7.8 Albumin 4.1 Globulin 3.7 H Albumin/Globulin Ratio 1.1 Urine Color Yellow Urine Appearance Cloudy Urine pH 5.5 Ur Specific Goodrich 1.015 Urine Protein 100 H Urine Glucose (UA) Negative Urine Ketones Negative Urine Blood Moderate H Urine Nitrite Positive H Urine Bilirubin Negative Urine Urobilinogen 0.2 Ur Leukocyte Esterase Large H Urine RBC 5-10 H Urine WBC >50 H Ur Epithelial Cells 1-3 Amorphous Sediment 2+ Urine Bacteria 2+ H 05/11/20 05/11/20 20:44 20:44 WBC RBC Hgb Hct MCV MCH MCHC RDW Plt Count MPV Absolute Neuts (auto) Absolute Lymphs (auto) Absolute Monos (auto) Absolute Eos (auto) Absolute Basos (auto) Neutrophils % Lymphocytes % Monocytes % Eosinophils % Basophils % Sodium Potassium Chloride Carbon Dioxide Anion Gap BUN Creatinine BUN/Creatinine Ratio Random Glucose Serum Osmolality Lactic Acid 1.4 Calcium Total Bilirubin AST ALT Alkaline Phosphatase Troponin I 0.03 Serum Total Protein Albumin Globulin Albumin/Globulin Ratio Urine Color Urine Appearance Urine pH Ur Specific Goodrich Urine Protein Urine Glucose (UA) Urine Ketones Urine Blood Urine Nitrite Urine Bilirubin Urine Urobilinogen Ur Leukocyte Esterase Urine RBC Urine WBC Ur Epithelial Cells Amorphous Sediment Urine Bacteria CLINICAL HISTORY: abd pain, flank pain COMPARISON: None. TECHNIQUE: CT ABDOMEN PELVIS WITH IV CONTRAST on 05/11/2020 8:11 PM CDT This exam was performed according to our departmental dose-optimization program, which includes automated exposure control, adjustment of the mA and/or kV according to patient size and/or use of iterative reconstruction technique. FINDINGS: Lower lungs are clear. Abdomen: The liver is normal in appearance. There is no biliary dilatation. There is a small hiatal hernia. Gallbladder is not well-seen. The pancreas and spleen are normal in appearance. There is a 2 mm linear lower pole left renal calculus. There is a 2 mm mid to lower pole right renal calculus. There is no definite hydronephrosis. Abdominal aorta is densely calcified without aneurysm. There is no free air. There is no retroperitoneal adenopathy. Pelvis: There is no bowel obstruction. Urinary bladder is moderately thickened with wall measuring up to 8 mm. There is mild surrounding inflammation. There is no free fluid. Hysterectomy was performed. Appendix is not clearly seen but there is no pericecal inflammation. Skeleton: There are no acute osseous findings. No suspicious bony lesions. IMPRESSION: Suspect diffuse cystitis. Bilateral mild nonobstructive nephrolithiasis. Electronically signed by: Deniz Peck MD 05/11/2020 10:52 PM CDT EXAM DESCRIPTION: XR Chest, 1 View CLINICAL HISTORY: 79 years Female flank pain, weakness TECHNIQUE: One view of the chest. COMPARISON: No prior exams provided for comparison. FINDINGS: The lungs are clear without focal consolidation, effusion, or pneumothorax. Aortic atherosclerosis. The cardiomediastinal silhouette and central pulmonary vasculature are otherwise normal. No acute osseous abnormalities. IMPRESSION: No acute cardiopulmonary abnormalities. Electronically signed by: Shilpa Morrell MD 05/11/2020 9:19 PM CDT Pt reassessed. Pt starting to feel better. Pt has been A+O x 4 in ER with stable vitals. I offered pt admission, but pt preferred to be d/c home. Departure - Departure Clinical Impression: Acute cystitis without hematuria, Nephrolithiasis Time of Disposition: 23:21 Disposition: Discharge to Home or Self Care Condition: Excellent Departure Forms: ED Discharge - Pt. Copy, Patient Portal Self Enrollment Instructions: DI for Urinary Tract Infection (UTI) Diet: resume usual diet Activity: increase activity as tolerated Referrals: Mukul Farr MD [Primary Care Provider] - 1-2 Weeks Prescriptions: levoFLOXacin [Levaquin] 500 mg PO DAILY 7 Days #14 tab Home Medications: Ambulatory Orders RX: Aspirin [Baby Aspirin] 81 mg PO QD 04/06/15 RX: Bisoprolol Fumarate 5 mg PO DAILY 04/06/15 RX: Clonazepam 0.5 mg PO BEDTIME 04/06/15 RX: Fenofibrate [Tricor] 145 mg PO BEDTIME 04/06/15 RX: Lisinopril 2.5 mg PO DAILY 04/06/15 RX: Multiple Vitamins W/ Minerals [Centrum Silver] 1 tab PO DAILY 04/06/15 RX: Pantoprazole Tablet [Protonix] 40 mg PO DAILY 04/06/15 RX: Venlafaxine Xr [Effexor Xr] 150 mg PO DAILY 04/06/15 RX: Acetaminophen W/ Codeine [Tylenol W/ CODEINE #3] 1 ea PO Q6HR PRN 06/30/18 RX: Bisacodyl [Laxative] 10 mg PO DAILY 06/30/18 RX: Cinnamon 1,000 mg PO DAILY 06/30/18 RX: Coenzyme Q10 (Ubidecarenone) [Coq-10] 100 mg PO DAILY 06/30/18 RX: Dorzolamide 2% Ophth [Trusopt Opthalmic Drops] 1 ml OPHTH BEDTIME 06/30/18 RX: Gabapentin [Neurontin] 200 mg PO TID 06/30/18 RX: Insulin Lispro [Humalog] 100 unit SC PRN 06/30/18 RX: Sitagliptin Phosphate [Januvia] 100 mg PO DAILY 06/30/18 Fiber Con Tabs 2 tablet PO BID 12/15/18 RX: Atorvastatin Calcium 40 mg PO BEDTIME 12/15/18 RX: B-Complex W/ Folic Acid [Super B Complex Maxi] 1 tab PO BEDTIME 12/15/18 RX: Bioflavonoid Products [Angela-C] 1 tab PO DAILY 12/15/18 RX: Docusate Sodium 250 mg PO DAILY 12/15/18 RX: Glucosamine Sulfate [Glucosamine] 2,000 mg PO DAILY 12/15/18 RX: Latanoprost 1 drop BOTH_EYES BEDTIME 12/15/18 RX: Turmeric (Curcuma Longa) [Turmeric] 500 mg PO DAILY 12/15/18 RX: Acetaminophen W/ Codeine [Acetaminophen/Codeine Braulio 300-60 mg] 1 tablet PO Q4H PRN 12/21/18 Rivaroxaban [Xarelto] 10 mg PO DAILY #8 tab 12/23/18 levoFLOXacin [Levaquin] 500 mg PO DAILY 7 Days #14 tab 05/11/20
--- NOTE | 2020-05-11 21:20 | RAD ---
EXAM DESCRIPTION: XR Chest, 1 View CLINICAL HISTORY: 79 years Female flank pain, weakness TECHNIQUE: One view of the chest. COMPARISON: No prior exams provided for comparison. FINDINGS: The lungs are clear without focal consolidation, effusion, or pneumothorax. Aortic atherosclerosis. The cardiomediastinal silhouette and central pulmonary vasculature are otherwise normal. No acute osseous abnormalities. IMPRESSION: No acute cardiopulmonary abnormalities. Electronically signed by: Shilpa Morrell MD 05/11/2020 9:19 PM CDT
--- NOTE | 2020-05-11 22:54 | CT ---
CLINICAL HISTORY: abd pain, flank pain COMPARISON: None. TECHNIQUE: CT ABDOMEN PELVIS WITH IV CONTRAST on 05/11/2020 8:11 PM CDT This exam was performed according to our departmental dose-optimization program, which includes automated exposure control, adjustment of the mA and/or kV according to patient size and/or use of iterative reconstruction technique. FINDINGS: Lower lungs are clear. Abdomen: The liver is normal in appearance. There is no biliary dilatation. There is a small hiatal hernia. Gallbladder is not well-seen. The pancreas and spleen are normal in appearance. There is a 2 mm linear lower pole left renal calculus. There is a 2 mm mid to lower pole right renal calculus. There is no definite hydronephrosis. Abdominal aorta is densely calcified without aneurysm. There is no free air. There is no retroperitoneal adenopathy. Pelvis: There is no bowel obstruction. Urinary bladder is moderately thickened with wall measuring up to 8 mm. There is mild surrounding inflammation. There is no free fluid. Hysterectomy was performed. Appendix is not clearly seen but there is no pericecal inflammation. Skeleton: There are no acute osseous findings. No suspicious bony lesions. IMPRESSION: Suspect diffuse cystitis. Bilateral mild nonobstructive nephrolithiasis. Electronically signed by: Deniz Peck MD 05/11/2020 10:52 PM CDT
[2020-05-11 23:19] VITALS: TEMP 98.9
[2020-05-11 23:27] VITALS: O2SAT 96
[2020-05-11 23:52] VITALS: BP 117/63
== END 2020-05-11 23:30 | disposition home or self-care (01) ==
LOC: ER 19:27
DX: N30.00 Acute cystitis without hematuria (principal); N20.0 Calculus of kidney; E11.9 Type 2 diabetes mellitus without complications; R00.0 Tachycardia, unspecified; R05 Cough; Z79.82 Long term (current) use of aspirin; Z79.01 Long term (current) use of anticoagulants; Z79.4 Long term (current) use of insulin; Z79.899 Other long term (current) drug therapy
CPT/HCPCS: 71045; 74177; 80053; 81001; 83605; 84484; 85025; 87040; 87086; 93005; J1956; J7030

== ENCOUNTER → 2020-07-18 | Outpatient (CLI) | payer OTHER | LOC: GMAM 10:06 | PROVIDERS: ATTEND Family Medicine | DX: E55.9 Vitamin D deficiency, unspecified (principal); E78.2 Mixed hyperlipidemia; I10 Essential (primary) hypertension ==

== ENCOUNTER 2020-08-13 20:05 | Emergency (ER) | payer OTHER ==
--- NOTE | 2020-08-13 20:49 | ED.PDOC ---
History of Present Illness - General Chief Complaint: Neuro Symptoms/Deficits Stated Complaint: altered MS since Tuesday, poss bladder infection Time Seen by Provider: 08/13/20 20:47 Source: patient, RN notes reviewed, Vital Signs reviewed, family - daughter Exam Limitations: no limitations - History of Present Illness Initial Comments: Patient is a 79-year-old white female who presents with complaints of altered mental status, dysuria and abdominal pain. The altered mental status started this evening. Patient has had dysuria and suprapubic abdominal pain x3 days. The pain is cramping in nature. It is colicky. It is waxing and waning. Pain does not radiate. Timing/Duration: other - 3 days Severity: moderate Improving Factors: nothing Worsening Factors: nothing Associated Symptoms: fever/chills, malaise, nausea/vomiting - Nausea only, weak ness Allergies/Adverse Reactions: Allergies Cephalosporins Allergy (Verified 08/13/20 20:28) Ketorolac Tromethamine [From Toradol] Allergy (Verified 08/13/20 20:28) Metformin Allergy (Verified 08/13/20 20:28) Tramadol [From Ultram] Allergy (Verified 08/13/20 20:28) Cyclobenzaprine [From Flexeril] Adverse Reaction (Verified 12/15/18 12:44) Home Medications: Ambulatory Orders Aspirin [Baby Aspirin] 81 mg PO QAM 04/06/15 Fenofibrate [Tricor] 145 mg PO BEDTIME 04/06/15 Lisinopril 2.5 mg PO QAM 04/06/15 Multiple Vitamins W/ Minerals [Centrum Silver] 1 tab PO DAILY 04/06/15 Pantoprazole Tablet [Protonix] 40 mg PO BEDTIME 04/06/15 Venlafaxine Xr [Effexor Xr] 150 mg PO QAM 04/06/15 Bisacodyl [Laxative] 10 mg PO DAILY 06/30/18 Cinnamon 1,000 mg PO QAM 06/30/18 Dorzolamide 2% Ophth [Trusopt Opthalmic Drops] 1 ml OPHTH BEDTIME 06/30/18 Gabapentin [Neurontin] 600 mg PO TID 06/30/18 Insulin Lispro [Humalog] 100 unit SC PRN 06/30/18 Sitagliptin Phosphate [Januvia] 100 mg PO QAM 06/30/18 Atorvastatin Calcium 40 mg PO BEDTIME 12/15/18 B-Complex W/ Folic Acid [Super B Complex Maxi] 1 tab PO BEDTIME 12/15/18 Docusate Sodium 250 mg PO DAILY 12/15/18 Fiber Con Tabs 2 tablet PO BID 12/15/18 Turmeric (Curcuma Longa) [Turmeric] 2 tablet PO QAM 12/15/18 Amoxicillin & Pot Clavulanate [Augmentin Tab] 875 mg PO BID #14 tab 08/13/20 Bioflavonoid Products [Angela-C] 1 tab PO QAM 08/13/20 Bisoprolol Fumarate 5 mg PO QAM 08/13/20 Calcium Citrate-Vitamin D [Citracal + D3 Maximum] 1 tab PO BID 08/13/20 Cefdinir [Omnicef] 300 mg PO BID #20 cap 08/13/20 Cetirizine HCl [ZyrTEC] 10 mg PO DAILY 08/13/20 Coenzyme Q10 (Ubidecarenone) [Coq-10] 100 mg PO QAM 08/13/20 Oofrqzgjsrr-Aneafyoibli-Xzehht [Move Free Joint Health Ad] 1 tab PO QAM 08/13/20 Insulin Glargine 100U/ml [Lantus] 16 unit SUBCU BEDTIME 08/13/20 Latanoprost 0.005% Ophth [Xalatan 0.005% Ophthalmic Drops] 1 drop BOTH_EYES BEDTIME 08/13/20 Magnesium Chloride [Slow-Mag] 128 mg PO BEDTIME 08/13/20 Tumeric 2 tablet PO QAM 08/13/20 Review of Systems - Review of Systems Constitutional: States: see HPI, chills, fever, malaise, weakness EENTM: States: no symptoms reported. Denies: eye pain, blurred vision, double vision Respiratory: States: no symptoms reported. Denies: cough, short of breath, wheezing Cardiology: States: no symptoms reported. Denies: chest pain, palpitations, syncope Gastrointestinal/Abdominal: States: see HPI, abdominal pain - Suprapubic, nausea . Denies: vomiting Genitourinary: States: see HPI, dysuria, frequency. Denies: discharge, hematuria Musculoskeletal: States: no symptoms reported. Denies: back pain, joint pain, neck pain Skin: States: no symptoms reported. Denies: change in color, rash Neurological: States: see HPI, weakness. Denies: tingling, tremors Endocrine: States: no symptoms reported. Denies: increased hunger, increased thirst, increased urine Hematologic/Lymphatic: States: no symptoms reported. Denies: blood clots, easy bleeding All other Systems: No Change from Baseline Past Medical History (General) - Patient Medical History Hx Seizures: No Hx Stroke: No Hx Dementia: No Hx Asthma: No Hx of COPD: No Hx Cardiac Disorders: Yes - arrhythmia, heart murmur Hx Congestive Heart Failure: No Hx Pacemaker: No Hx Hypertension: Yes Hx Thyroid Disease: No Hx Diabetes: Yes Hx Gastroesophageal Reflux: Yes Hx Renal Disease: No Hx Cancer: Yes - skin Hx of HIV: No Hx Hepatitis C: No Hx MRSA: No MRSA Source:: Wound Surgical History: appendectomy, cholecystectomy, Hysterectomy - Vaccination History Hx Tetanus, Diphtheria Vaccination: No Hx Influenza Vaccination: No Hx Pneumococcal Vaccination: No - Social History Hx Tobacco Use: No Hx Chewing Tobacco Use: No Hx Alcohol Use: No Hx Substance Use: No Hx Substance Use Treatment: No Hx Depression: Yes Hx Physical Abuse: No Hx Emotional Abuse: No Hx Suspected Abuse: No - Female History Patient : No Family Medical History - Family History Mother Family History: Unknown Living Status: Cause of : lung CA Physical Exam - Physical Exam General Appearance: Alert, Anxious, Obvious distress, Ill Appearing, Unkempt, Well Developed, Well Hydrated, Well Nourished Eye Exam: bilateral normal Ears, Nose, Throat: hearing grossly normal, normal pharynx Neck: non-tender, full range of motion, supple Respiratory: chest non-tender, lungs clear, normal breath sounds, no respiratory distress, no accessory muscle use Cardiovascular/Chest: normal peripheral pulses, no edema, no gallop, no JVD, no murmur, tachycardia Peripheral Pulses: radial,right: 2+, radial,left: 2+ Gastrointestinal/Abdominal: normal bowel sounds, soft, tenderness - Suprapubic Back Exam: normal inspection, no CVA tenderness, no vertebral tenderness Extremity: normal range of motion, non-tender, normal inspection Neurologic: flour broker II-XII nml as tested, no motor/sensory deficits, alert, normal m ood/affect, other - Slow to answer questions Skin Exam: normal color, warm/dry Lymphatic: no adenopathy Progress - Progress Progress: Differential diagnosis: UTI, pyelonephritis, sepsis, pneumonia among others. 08/13/20 22:03 Patient work-up shows that she is not septic as her lactic acid is less than 2. She has no elevated white count. Temperature has resolved here. Patient is feeling much better after liter fluid labs consistent with a significant UTI. Patient given Rocephin 1 g IV. Patient to be discharged home with a prescription for cefdinir 300 mg p.o. twice daily x10 days. I discussed this plan of care with the patient and her and they voiced understanding and agreement. Jim Ku M.D. #[id number] - Results/Orders Results/Orders: EKG performed 13 August 2020 at 2131 hrs.: Sinus tachycardia at 102 bpm, normal axis deviation, no ST or T wave changes concerning for ischemia, otherwise normal EKG. No comparison EKG available at this time. 08/13/20 20:45 EKG STAT 08/13/20 20:59 BLOOD CULTURE Stat 08/13/20 21:07 URINE CULTURE W/COLONY COUNT Stat 08/13/20 21:15 Catheter:Yu ONCE 08/13/20 21:58 cefTRIAXone SODIUM [Rocephin] 1 gm Sodium Chl 0.9% 50Ml Min-Bag+ [NS 50ml MINI-BAG+] 50 ml IVPB ONCE Laboratory Results - last 24 hr 08/13/20 08/13/20 08/13/20 20:59 20:59 20:59 WBC 10.7 RBC 3.58 L Hgb 11.2 L Hct 33.4 L MCV 93.3 MCH 31.4 H MCHC 33.7 RDW 14.5 Plt Count 190 MPV 8.1 Absolute Neuts (auto) 9.20 H Absolute Lymphs (auto) 0.50 L Absolute Monos (auto) 0.90 H Absolute Eos (auto) 0.00 Absolute Basos (auto) 0.00 Neutrophils % 86.6 H Lymphocytes % 4.6 L Monocytes % 8.5 Eosinophils % 0.1 L Basophils % 0.2 Sodium 133 L Potassium 3.9 Chloride 99 L Carbon Dioxide 21 Anion Gap 16.9 BUN 33 H Creatinine 1.19 BUN/Creatinine Ratio 27.7 H Random Glucose 280 H Serum Osmolality 283.7 Lactic Acid 1.4 Calcium 9.3 Total Bilirubin 0.7 AST 30 ALT 16 Alkaline Phosphatase 44 Creatine Kinase 101 CK-MB (CK-2) 1.8 CK-MB (CK-2) % Not Reportable Troponin I 0.04 Serum Total Protein 6.9 Albumin 3.4 Globulin 3.5 Albumin/Globulin Ratio 1.0 L Urine Color Urine Appearance Urine pH Ur Specific [place] Urine Protein Urine Glucose (UA) Urine Ketones Urine Blood Urine Nitrite Urine Bilirubin Urine Urobilinogen Ur Leukocyte Esterase Urine RBC Urine WBC Ur Epithelial Cells Urine Bacteria 08/13/20 21:07 WBC RBC Hgb Hct MCV MCH MCHC RDW Plt Count MPV Absolute Neuts (auto) Absolute Lymphs (auto) Absolute Monos (auto) Absolute Eos (auto) Absolute Basos (auto) Neutrophils % Lymphocytes % Monocytes % Eosinophils % Basophils % Sodium Potassium Chloride Carbon Dioxide Anion Gap BUN Creatinine BUN/Creatinine Ratio Random Glucose Serum Osmolality Lactic Acid Calcium Total Bilirubin AST ALT Alkaline Phosphatase Creatine Kinase CK-MB (CK-2) CK-MB (CK-2) % Troponin I Serum Total Protein Albumin Globulin Albumin/Globulin Ratio Urine Color Yellow Urine Appearance Cloudy Urine pH 6.0 Ur Specific [place] 1.020 Urine Protein 100 H Urine Glucose (UA) 100 H Urine Ketones Trace Urine Blood Moderate H Urine Nitrite Positive H Urine Bilirubin Negative Urine Urobilinogen 0.2 Ur Leukocyte Esterase Moderate H Urine RBC 5-10 H Urine WBC 30-40 H Ur Epithelial Cells 1-3 Urine Bacteria 3+ H Vital Signs 08/13/20 08/13/20 08/13/20 20:09 21:00 21:06 Temperature 101.1 F H 99.9 F H Pulse Rate [ 100 H 104 H 105 H monitor] Respiratory 20 20 16 Rate Blood Pressure 163/71 131/63 144/67 [Left Arm] O2 Sat by Pulse 93 L 94 L 94 L Oximetry Departure - Departure Clinical Impression: Dehydration Altered mental status Qualifiers: Altered mental status type: disorientation Qualified Code(s): R41.0 - Disorientation, unspecified UTI (urinary tract infection) Qualifiers: Urinary tract infection type: acute cystitis Hematuria presence: without hematuria Qualified Code(s): N30.00 - Acute cystitis without hematuria Time of Disposition: 22:15 Disposition: Discharge to Home or Self Care Condition: Good Departure Forms: ED Discharge - Pt. Copy, Patient Portal Self Enrollment Instructions: Dehydration, Adult (DC), Urinary Tract Infection, Adult (DC), Altered Mental Status (DC) Diet: resume usual diet Activity: increase activity as tolerated Referrals: Mukul Farr MD [Primary Care Provider] - 1-5 Days Prescriptions: Amoxicillin & Pot Clavulanate [Augmentin Tab] 875 mg PO BID #14 tab Cefdinir [Omnicef] 300 mg PO BID #20 cap Home Medications: Ambulatory Orders Aspirin [Baby Aspirin] 81 mg PO QAM 04/06/15 Fenofibrate [Tricor] 145 mg PO BEDTIME 04/06/15 Lisinopril 2.5 mg PO QAM 04/06/15 Multiple Vitamins W/ Minerals [Centrum Silver] 1 tab PO DAILY 04/06/15 Pantoprazole Tablet [Protonix] 40 mg PO BEDTIME 04/06/15 Venlafaxine Xr [Effexor Xr] 150 mg PO QAM 04/06/15 Bisacodyl [Laxative] 10 mg PO DAILY 06/30/18 Cinnamon 1,000 mg PO QAM 06/30/18 Dorzolamide 2% Ophth [Trusopt Opthalmic Drops] 1 ml OPHTH BEDTIME 06/30/18 Gabapentin [Neurontin] 600 mg PO TID 06/30/18 Insulin Lispro [Humalog] 100 unit SC PRN 06/30/18 Sitagliptin Phosphate [Januvia] 100 mg PO QAM 06/30/18 Atorvastatin Calcium 40 mg PO BEDTIME 12/15/18 B-Complex W/ Folic Acid [Super B Complex Maxi] 1 tab PO BEDTIME 12/15/18 Docusate Sodium 250 mg PO DAILY 12/15/18 Fiber Con Tabs 2 tablet PO BID 12/15/18 Turmeric (Curcuma Longa) [Turmeric] 2 tablet PO QAM 12/15/18 Amoxicillin & Pot Clavulanate [Augmentin Tab] 875 mg PO BID #14 tab 08/13/20 Bioflavonoid Products [Angela-C] 1 tab PO QAM 08/13/20 Bisoprolol Fumarate 5 mg PO QAM 08/13/20 Calcium Citrate-Vitamin D [Citracal + D3 Maximum] 1 tab PO BID 08/13/20 Cefdinir [Omnicef] 300 mg PO BID #20 cap 08/13/20 Cetirizine HCl [ZyrTEC] 10 mg PO DAILY 08/13/20 Coenzyme Q10 (Ubidecarenone) [Coq-10] 100 mg PO QAM 08/13/20 Skmuuksktdb-Cagdubrzqgf-Mimqtw [Move Free Joint Health Ad] 1 tab PO QAM 08/13/20 Insulin Glargine 100U/ml [Lantus] 16 unit SUBCU BEDTIME 08/13/20 Latanoprost 0.005% Ophth [Xalatan 0.005% Ophthalmic Drops] 1 drop BOTH_EYES BEDTIME 08/13/20 Magnesium Chloride [Slow-Mag] 128 mg PO BEDTIME 08/13/20 Tumeric 2 tablet PO QAM 08/13/20
[2020-08-13] MEDS ORDERED: ACETAMINOPHEN 325 MG TAB PO ONE (21:51)
[2020-08-13 21:57] VITALS: TEMP 99.9
[2020-08-13] MEDS ORDERED: cefTRIAXone SODIUM 1 GM in SODIUM CHL 0.9% 50ML MIN-BAG+ 50 ML IVPB ONE (21:58)
[2020-08-13 22:45] VITALS: BP 129/65; O2SAT 94
== END 2020-08-13 22:45 | disposition home or self-care (01) ==
LOC: ER 20:05
DX: N30.00 Acute cystitis without hematuria (principal); E86.0 Dehydration; R41.0 Disorientation, unspecified; R00.0 Tachycardia, unspecified; F32.9 Major depressive disorder, single episode, unspecified; K21.9 Gastro-esophageal reflux disease without esophagitis; E11.9 Type 2 diabetes mellitus without complications; I10 Essential (primary) hypertension; Z20.828 Contact with and (suspected) exposure to other viral communicable diseases; Z85.828 Personal history of other malignant neoplasm of skin; Z79.4 Long term (current) use of insulin; Z79.82 Long term (current) use of aspirin; Z79.899 Other long term (current) drug therapy; Z88.1 Allergy status to other antibiotic agents; Z88.8 Allergy status to other drugs, medicaments and biological substances; Z88.5 Allergy status to narcotic agent
CPT/HCPCS: 36415; 80053; 81001; 82550; 82553; 83605; 84484; 85025; 87040; 87086; 87502; 87635; 93005; J0696; J7050